=== PATIENT | male | born 1955 | race African-American/Black ===

== ENCOUNTER 2020-08-28 01:37 | Inpatient (IN) | payer MEDICARE, MEDICAID ==
[~2020-08-28] VITALS: Ht 175.3 cm; Wt 73.0 kg
[2020-08-28] MEDS ORDERED: METHYLPREDNISOLONE SOD SUCC 125 MG/2 ML VIAL IV STA (01:42)
[2020-08-28] MEDS ORDERED: ALBUTEROL (0.083%) 2.5MG/3ML NEB HHN STA (01:42)
[2020-08-28] MEDS ORDERED: IPRATROPIUM BROMIDE (0.02%) 0.5MG/2.5ML NEB HHN STA (01:42)
[2020-08-28] MEDS ORDERED: MAGNESIUM 2 G PREMIX 50 ML IV ONE (01:45)
[2020-08-28 02:35] LABS: BASOPHILS % 0.4 % (0.0-2.0); HEMATOCRIT. 38.7 % (42.0-52.0); HEMOGLOBIN. 12.8 g/dL (14.0-18.0); LYMPHOCYTES % 10.6 % (20.0-50.0); MEAN CORPUSCULAR HEMOGLOBIN 27.5 pg (28.0-32.0); MEAN CORPUSCULAR VOLUME 83.1 fL (80.0-94.0); MEAN PLATELET VOLUME 9.9 fl (7.4-10.4); MONOCYTES % 12.3 % (2.0-8.0); NEUTROPHILS % 76.7 % (40.0-76.0); PLATELET 424 x1000/uL (130-400); RED BLOOD CELL COUNT 4.66 mill/uL (4.7-6.1)
[2020-08-28 02:36] LABS: CHLORIDE 100 mEq/L (98-107)
[2020-08-28] MEDS ORDERED: PIPERACILLIN/TAZOBACTAM 3.375GM/50ML PREMIX IV ONE (03:00)
[2020-08-28] MEDS ORDERED: PIPERACILLIN/TAZ 3.375G PREMIX 50 ML IV NR (03:00)
[2020-08-28] MEDS ORDERED: VANCOMYCIN 1 G PREMIX 200 ML IV SCH (03:00)
[2020-08-28] MEDS ORDERED: ASPIRIN 81MG TABLET PO NR (03:00)
[2020-08-28] MEDS ORDERED: CALCIUM GLUCONATE 100MG/ML 10ML VIAL IV NR (03:15)
[2020-08-28 03:44] LABS: BG BASE EXCESS 5.1 mmol/L (-2.0-2.0); BG CARBOXYHEMOGLOBIN 1.6 % (0.5-1.5); BG DEOXYHEMOGLOBIN 0.5 % (0.0-5.0); BG FRACTION INSPIRED OXYGEN 100; BG METHEMOGLOBIN 0.7 % (0.0-1.5); BG OXYGEN SATURATION 99.5 % (92.0-98.5); BG OXYHEMOGLOBIN 97.2 % (94.0-97.0); BG PCO2 73.5 mmHg (35.0-45.0); BG PH 7.283 (7.350-7.450); BG PO2 507.9 mmHg (75.0-100.0); BG SAMPLE SITE UVC; BG TOTAL HEMOGLOBIN 12.8 g/dL (12.0-18.0); BG VENT MODE MASK - BIPAP
[2020-08-28] MEDS ORDERED: ALBUTEROL (0.083%) 2.5MG/3ML NEB HHN ONE (05:00)
[2020-08-28 08:50] LABS: CLARITY URINE CLEAR (CLEAR); COLOR URINE YELLOW (YELLOW); KETONES URINE NEGATIVE (NEGATIVE); LEUKOCYTE ESTERASE URINE TRACE (NEGATIVE); NITRITE URINE NEGATIVE (NEGATIVE); OCCULT BLOOD URINE 3+ (NEGATIVE); PH URINE 5.5 (4.5-8.0); PROTEIN URINE 2+ (NEGATIVE); SPECIFIC GRAVITY URINE 1.029 (1.005-1.030)
[2020-08-28 08:54] VITALS: BP 158/85
[2020-08-28] MEDS ORDERED: ONDANSETRON HCL 4MG/2ML INJ IV PRN (09:15)
[2020-08-28] MEDS ORDERED: CLOP75TA4 MT (09:37)
[2020-08-28] MEDS ORDERED: BENA5TAB6 PO (09:37)
[2020-08-28] MEDS ORDERED: HYDR12.54 MT (09:37)
[2020-08-28] MEDS ORDERED: ALPR0.25 PO (09:37)
[2020-08-28] MEDS: ENOXAPARIN 40MG/0.4ML SYR SUBCUT SCH (10:30)
[2020-08-28] MEDS: METHYLPREDNISOLONE SOD SUCC 40 MG/ML VIAL IV SCH ×3 (10:30→21:50)
[2020-08-28] MEDS: FAMOTIDINE 20MG TABLET PO SCH ×2 (10:30→21:49)
[2020-08-28 10:38] VITALS: BP 138/75
[2020-08-28 12:00] VITALS: BP 132/83
[2020-08-28] MEDS: IPRATROPIUM/ALBUTEROL 0.5-3(2.5)MG/3ML NEB HHN SCH ×3 (12:05→20:58)
[2020-08-28] MEDS: AMLODIPINE 10MG TABLET PO SCH (15:37)
[2020-08-28 16:00] VITALS: BP 133/77
[2020-08-28] MEDS: ALPRAZOLAM 0.25 MG TABLET PO PRN (18:07)
[2020-08-28 19:45] VITALS: BP 135/64
[2020-08-28] MEDS: TRAZODONE HCL 50MG TABLET PO SCH (21:49)
[2020-08-28 22:26] VITALS: BP 121/64
[2020-08-28] MEDS ORDERED: TEMAZEPAM 15MG CAPSULE PO PRN (23:15)
[2020-08-29] VITALS (12 sets, daily range): BP systolic 95–133; BP diastolic 58–78
[2020-08-29] MEDS: IPRATROPIUM/ALBUTEROL 0.5-3(2.5)MG/3ML NEB HHN SCH ×7 (00:59→23:47)
[2020-08-29] MEDS: METHYLPREDNISOLONE SOD SUCC 40 MG/ML VIAL IV SCH ×3 (06:37→22:05)
[2020-08-29] MEDS: FAMOTIDINE 20MG TABLET PO SCH ×2 (08:07→22:04)
[2020-08-29] MEDS: ENOXAPARIN 40MG/0.4ML SYR SUBCUT SCH (08:07)
[2020-08-29] MEDS: AMLODIPINE 10MG TABLET PO SCH (08:08)
[2020-08-29] MEDS: ALPRAZOLAM 0.25 MG TABLET PO PRN ×2 (09:20→22:04)
[2020-08-29] MEDS: TRAZODONE HCL 50MG TABLET PO SCH (22:04)
[2020-08-29] MEDS: THEOPHYLLINE ANHYDROUS 80 MG/15 ML 120ML PO SCH (22:05)
[2020-08-30] VITALS (12 sets, daily range): BP systolic 114–146; BP diastolic 59–88
[2020-08-30] MEDS ORDERED: ACETAMINOPHEN 650MG/20.3ML UDC PO PRN (00:30)
[2020-08-30] MEDS ORDERED: HYDROCODONE/ACETAMINOPHEN 10/325MG TABLET PO PRN (00:30)
[2020-08-30] MEDS ORDERED: ACETAMINOPHEN 325MG TABLET PO PRN ×2 (00:45→09:30)
[2020-08-30] MEDS: TEMAZEPAM 15MG CAPSULE PO PRN ×2 (02:52→21:22)
[2020-08-30] MEDS: IPRATROPIUM/ALBUTEROL 0.5-3(2.5)MG/3ML NEB HHN SCH ×5 (04:36→21:25)
[2020-08-30] MEDS: METHYLPREDNISOLONE SOD SUCC 40 MG/ML VIAL IV SCH ×3 (07:11→21:22)
[2020-08-30] MEDS: THEOPHYLLINE ANHYDROUS 80 MG/15 ML 120ML PO SCH ×3 (07:12→21:56)
[2020-08-30 08:47] LABS: BG BASE EXCESS 8.5 mmol/L (-2.0-2.0); BG CARBOXYHEMOGLOBIN 0.3 % (0.5-1.5); BG DEOXYHEMOGLOBIN 2.2 % (0.0-5.0); BG FRACTION INSPIRED OXYGEN 28; BG HCO3 ACT 34.5 mmol/L (22.0-26.0); BG METHEMOGLOBIN 0.6 % (0.0-1.5); BG OXYGEN SATURATION 97.8 % (92.0-98.5); BG OXYHEMOGLOBIN 96.9 % (94.0-97.0); BG PCO2 55.8 mmHg (35.0-45.0); BG PH 7.409 (7.350-7.450); BG PO2 126.1 mmHg (75.0-100.0); BG SAMPLE SITE RIGHT RADIAL; BG TOTAL HEMOGLOBIN 10.1 g/dL (12.0-18.0); BG VENT MODE NASAL CANNULA
[2020-08-30] MEDS: AMLODIPINE 10MG TABLET PO SCH (09:06)
[2020-08-30] MEDS: FAMOTIDINE 20MG TABLET PO SCH ×2 (09:06→21:21)
[2020-08-30] MEDS: ENOXAPARIN 40MG/0.4ML SYR SUBCUT SCH (09:06)
[2020-08-30] MEDS: ALPRAZOLAM 0.25 MG TABLET PO PRN ×2 (09:09→21:31)
[2020-08-30] MEDS ORDERED: THEOL PO (11:59)
[2020-08-30] MEDS ORDERED: ALPR0.25 PO (11:59)
[2020-08-30] MEDS ORDERED: ALBU18HF2 IH (11:59)
[2020-08-30] MEDS ORDERED: TRAZ-251 PO (11:59)
[2020-08-30] MEDS ORDERED: IPRA3AMP9 NEB (11:59)
[2020-08-30] MEDS ORDERED: FLUT1DIS3 INH (11:59)
[2020-08-30] MEDS ORDERED: P20 MT (11:59)
[2020-08-30] MEDS: TRAZODONE HCL 50MG TABLET PO SCH (21:21)
[2020-08-31] VITALS: BP 137/79
[2020-08-31] MEDS: IPRATROPIUM/ALBUTEROL 0.5-3(2.5)MG/3ML NEB HHN SCH ×3 (00:23→08:56)
[2020-08-31 02:00] VITALS: BP 156/98
[2020-08-31 05:41] VITALS: BP 129/80
[2020-08-31] MEDS: METHYLPREDNISOLONE SOD SUCC 40 MG/ML VIAL IV SCH (06:38)
[2020-08-31] MEDS: THEOPHYLLINE ANHYDROUS 80 MG/15 ML 120ML PO SCH (06:38)
[2020-08-31] MEDS: ALPRAZOLAM 0.25 MG TABLET PO PRN (06:44)
[2020-08-31 07:55] VITALS: BP 139/66
[2020-08-31] MEDS: ENOXAPARIN 40MG/0.4ML SYR SUBCUT SCH (08:43)
[2020-08-31] MEDS: FAMOTIDINE 20MG TABLET PO SCH (08:44)
[2020-08-31] MEDS: AMLODIPINE 10MG TABLET PO SCH (08:44)
[2020-08-31 09:40] VITALS: BP 139/66
== END 2020-08-31 10:30 | disposition home or self-care (01) | DRG 917 ==
LOC: ER 01:37 → 3WST 03:24 → EDBEDREQ 03:27 → EDBEDREQTM 03:27 → ENRESERV 07:29
PROVIDERS: ADMIT Internal Medicine; ATTEND Internal Medicine
PROC: 5A09357 Assistance with Respiratory Ventilation, Less than 24 Consecutive Hours, Continuous Positive Airway Pressure (ICD-10-PCS; principal; 2020-08-28)
DX: T40.5X1A Poisoning by cocaine, accidental (unintentional), initial encounter (principal); J96.02 Acute respiratory failure with hypercapnia; J68.0 Bronchitis and pneumonitis due to chemicals, gases, fumes and vapors; J44.1 Chronic obstructive pulmonary disease with (acute) exacerbation; F14.90 Cocaine use, unspecified, uncomplicated; D72.829 Elevated white blood cell count, unspecified; D64.9 Anemia, unspecified; I50.9 Heart failure, unspecified; T38.0X5A Adverse effect of glucocorticoids and synthetic analogues, initial encounter; I11.0 Hypertensive heart disease with heart failure; F19.11 Other psychoactive substance abuse, in remission; Z99.81 Dependence on supplemental oxygen; Z72.0 Tobacco use; Y92.89 Other specified places as the place of occurrence of the external cause; Z79.899 Other long term (current) drug therapy
CPT/HCPCS: 36415; 36600; 71045; 80053; 81003; 82375; 82805; 83605; 83880; 84145; 84484; 85025; 93005; 94640; 94644; 94660; 99285; J0610; J1650; J2543; J2920; J2930; J3475

== ENCOUNTER 2020-10-25 23:37 | Inpatient (IN) | payer MEDICARE, MEDICAID ==
[~2020-10-25] VITALS: Ht 177.8 cm; Wt 90.7 kg
[~2020-10-25 23:37] MED LIST: ALBU18HF2 IH; ALPR0.25 PO; BENA5TAB6 PO; CLOP75TA4 MT; FLUT1DIS3 INH; HYDR12.54 MT; IPRA3AMP9 NEB; P20 MT; THEOL PO; TRAZ-251 PO
[2020-10-25] MEDS ORDERED: METHYLPREDNISOLONE SOD SUCC 125 MG/2 ML VIAL IV STA (23:46)
[2020-10-25] MEDS ORDERED: ONDANSETRON HCL 4MG/2ML INJ IV STA (23:46)
[2020-10-25] MEDS ORDERED: IPRATROPIUM BROMIDE (0.02%) 0.5MG/2.5ML NEB HHN STA (23:46)
[2020-10-26] MEDS ORDERED: MAGNESIUM 2 G PREMIX 50 ML IV ONE
[2020-10-26] MEDS: ALBUTEROL (0.083%) 2.5MG/3ML NEB HHN SCH ×2 (00:25→13:35)
[2020-10-26 01:02] LABS: BASOPHILS % 0.5 % (0.0-2.0); EOSINOPHILS % 0.3 % (0.0-5.0); HEMATOCRIT. 36.6 % (42.0-52.0); HEMOGLOBIN. 11.7 g/dL (14.0-18.0); LYMPHOCYTES % 22.1 % (20.0-50.0); MEAN CORPUSCULAR HEMOGLOBIN 26.2 pg (28.0-32.0); MEAN CORPUSCULAR VOLUME 81.7 fL (80.0-94.0); MEAN PLATELET VOLUME 9.3 fl (7.4-10.4); MONOCYTES % 8.9 % (2.0-8.0); NEUTROPHILS % 68.2 % (40.0-76.0); PLATELET 334 x1000/uL (130-400); RED BLOOD CELL COUNT 4.48 mill/uL (4.7-6.1); RED CELL DISTRIBUTION WIDTH 19.7 % (11.6-14.6)
[2020-10-26 01:08] LABS: CHLORIDE 108 mEq/L (98-107)
[2020-10-26 03:33] LABS: BG BASE EXCESS -1.2 mmol/L (-2.0-2.0); BG CARBOXYHEMOGLOBIN 0.8 % (0.5-1.5); BG DEOXYHEMOGLOBIN 3.6 % (0.0-5.0); BG FRACTION INSPIRED OXYGEN 40; BG HCO3 ACT 25.5 mmol/L (22.0-26.0); BG METHEMOGLOBIN 0.9 % (0.0-1.5); BG OXYGEN SATURATION 96.3 % (92.0-98.5); BG OXYHEMOGLOBIN 94.7 % (94.0-97.0); BG PCO2 52.2 mmHg (35.0-45.0); BG PH 7.307 (7.350-7.450); BG PO2 97.5 mmHg (75.0-100.0); BG TOTAL HEMOGLOBIN 10.7 g/dL (12.0-18.0); BG VENT MODE NASAL CANNULA
[2020-10-26] MEDS ORDERED: IPRATROPIUM/ALBUTEROL 0.5-3(2.5)MG/3ML NEB HHN PRN (05:45)
[2020-10-26] MEDS ORDERED: ACETAMINOPHEN 325MG TABLET PO PRN (11:30)
[2020-10-26] MEDS ORDERED: ONDANSETRON HCL 4MG/2ML INJ IV PRN (11:30)
[2020-10-26] MEDS ORDERED: KETOROLAC 30MG/ML VIAL IV PRN (11:30)
[2020-10-26] MEDS: ENOXAPARIN 40MG/0.4ML SYR SUBCUT SCH (12:00)
[2020-10-26] MEDS ORDERED: LEVOFLOXACIN 500MG PREMIX 100 ML IV SCH (12:00)
[2020-10-26] MEDS: METHYLPREDNISOLONE SOD SUCC 40 MG/ML VIAL IV SCH ×2 (12:00→21:46)
[2020-10-26] MEDS: ALBUTEROL 6.7GM HFA INHALER ORI SCH ×2 (16:54→21:02)
[2020-10-26] MEDS: THEOPHYLLINE ANHYDROUS 80 MG/15 ML 120ML PO SCH (22:00)
[2020-10-27] MEDS: METHYLPREDNISOLONE SOD SUCC 40 MG/ML VIAL IV SCH ×3 (06:37→20:09)
[2020-10-27] MEDS: THEOPHYLLINE ANHYDROUS 80 MG/15 ML 120ML PO SCH ×3 (06:46→22:13)
[2020-10-27] MEDS: ALBUTEROL 6.7GM HFA INHALER ORI SCH ×5 (08:31→21:04)
[2020-10-27 11:21] VITALS: BP 180/77
[2020-10-27 12:00] VITALS: BP 170/76
[2020-10-27] MEDS ORDERED: CLONIDINE 0.1MG TABLET PO PRN (12:30)
[2020-10-27] MEDS: LEVOFLOXACIN 500MG PREMIX 100 ML IV SCH (12:52)
[2020-10-27] MEDS: LOSARTAN POTASSIUM 100 MG TABLET PO SCH (12:53)
[2020-10-27] MEDS: ENOXAPARIN 40MG/0.4ML SYR SUBCUT SCH (12:53)
[2020-10-27 16:00] VITALS: BP 156/72
[2020-10-27 20:46] VITALS: BP 154/77
[2020-10-27] MEDS: LORAZEPAM 1MG TABLET PO PRN (22:12)
[2020-10-28 00:40] VITALS: BP 156/73
[2020-10-28] MEDS: ALBUTEROL 6.7GM HFA INHALER ORI SCH ×2 (02:25→21:25)
[2020-10-28 04:00] VITALS: BP 145/91
[2020-10-28] MEDS: METHYLPREDNISOLONE SOD SUCC 40 MG/ML VIAL IV SCH ×3 (04:21→20:16)
[2020-10-28] MEDS: THEOPHYLLINE ANHYDROUS 80 MG/15 ML 120ML PO SCH ×3 (05:47→21:40)
[2020-10-28 08:00] VITALS: BP 161/84
[2020-10-28] MEDS: LOSARTAN POTASSIUM 100 MG TABLET PO SCH (08:27)
[2020-10-28] MEDS: LORAZEPAM 1MG TABLET PO PRN ×2 (10:32→21:40)
[2020-10-28 11:57] VITALS: BP 154/76
[2020-10-28] MEDS: ENOXAPARIN 40MG/0.4ML SYR SUBCUT SCH (13:00)
[2020-10-28] MEDS: LEVOFLOXACIN 500MG PREMIX 100 ML IV SCH (13:00)
[2020-10-28 15:53] VITALS: BP 140/77
[2020-10-28 20:00] VITALS: BP_SYST 112; BP_SYST 124; BP_DIAS 71; BP_DIAS 85
[2020-10-28] MEDS: GUAIFENESIN 200MG/10ML SUGAR FREE UDC PO PRN (21:40)
[2020-10-29] VITALS: BP 153/75
[2020-10-29] MEDS: ALBUTEROL 6.7GM HFA INHALER ORI SCH ×4 (01:48→13:45)
[2020-10-29 04:00] VITALS: BP 153/87
[2020-10-29] MEDS: METHYLPREDNISOLONE SOD SUCC 40 MG/ML VIAL IV SCH ×2 (04:14→12:48)
[2020-10-29] MEDS: THEOPHYLLINE ANHYDROUS 80 MG/15 ML 120ML PO SCH ×2 (06:00→12:48)
[2020-10-29 08:00] VITALS: BP 125/87
[2020-10-29] MEDS: LOSARTAN POTASSIUM 100 MG TABLET PO SCH (08:49)
[2020-10-29 11:57] VITALS: BP 142/87
[2020-10-29] MEDS: LEVOFLOXACIN 500MG PREMIX 100 ML IV SCH (12:48)
[2020-10-29] MEDS: ENOXAPARIN 40MG/0.4ML SYR SUBCUT SCH (12:48)
[2020-10-29] MEDS: GUAIFENESIN 200MG/10ML SUGAR FREE UDC PO PRN (15:16)
[2020-10-29 16:00] VITALS: BP 102/83
[2020-10-29] MEDS ORDERED: P20 MT (16:57)
[2020-10-29] MEDS ORDERED: LOSA100T3 PO (16:57)
[2020-10-29] MEDS ORDERED: THEOL PO (16:57)
[2020-10-29] MEDS ORDERED: ALBU18HF2 IH (16:57)
[2020-10-29] MEDS ORDERED: IPRA3AMP9 NEB (16:57)
[2020-10-29] MEDS ORDERED: FLUT1DIS3 INH (16:57)
[2020-10-29 17:15] VITALS: BP 102/83
== END 2020-10-29 18:00 | disposition home or self-care (01) | DRG 205 ==
LOC: ER 23:37 → MICUSO 10-26 05:13 → EDBEDREQ 10-26 05:26 → EDBEDREQTM 10-26 05:26 → EDBEDREQDT 10-26 05:26 → 7EST 10-27 10:14
PROVIDERS: ADMIT Internal Medicine; ATTEND Internal Medicine
DX: J68.0 Bronchitis and pneumonitis due to chemicals, gases, fumes and vapors (principal); J96.00 Acute respiratory failure, unspecified whether with hypoxia or hypercapnia; Z20.828 Contact with and (suspected) exposure to other viral communicable diseases; E87.8 Other disorders of electrolyte and fluid balance, not elsewhere classified; F17.210 Nicotine dependence, cigarettes, uncomplicated; I50.9 Heart failure, unspecified; F14.10 Cocaine abuse, uncomplicated; I11.0 Hypertensive heart disease with heart failure; D64.9 Anemia, unspecified; Z99.81 Dependence on supplemental oxygen; Z79.52 Long term (current) use of systemic steroids; Z82.49 Family history of ischemic heart disease and other diseases of the circulatory system; Z79.899 Other long term (current) drug therapy
CPT/HCPCS: 36415; 36600; 71045; 80053; 82375; 82805; 83605; 83880; 84484; 85025; 87635; 93005; 94640; 96365; 96366; 96367; 96372; 96375; 96376; 99285; J1650; J1956; J2405; J2920; J2930; J3475; A4315

== ENCOUNTER 2021-01-20 11:20 | Inpatient (IN) | payer MEDICARE, MEDICAID ==
[~2021-01-20] VITALS: Ht 182.9 cm; Wt 80.7 kg
[~2021-01-20 11:20] MED LIST changes: +CLOP-31 PO; -CLOP75TA4 MT; -HYDR12.54 MT; +HYDR12.54 PO; +LOSA100T3 PO
[2021-01-20] MEDS ORDERED: DEXAMETHASONE 10 MG/ML VIAL IV ONE (12:15)
[2021-01-20] MEDS ORDERED: IPRATROPIUM/ALBUTEROL 0.5-3(2.5)MG/3ML NEB HHN ONE ×2 (12:15→17:00)
[2021-01-20 13:14] LABS: BASOPHILS % 1.1 % (0.0-2.0); EOSINOPHILS % 2.3 % (0.0-5.0); HEMATOCRIT. 33.8 % (42.0-52.0); HEMOGLOBIN. 11.3 g/dL (14.0-18.0); LYMPHOCYTES % 12.6 % (20.0-50.0); MEAN CORPUSCULAR HEMOGLOBIN 27.1 pg (28.0-32.0); MEAN PLATELET VOLUME 9.3 fl (7.4-10.4); MONOCYTES % 8.9 % (2.0-8.0); NEUTROPHILS % 75.1 % (40.0-76.0); PLATELET 230 x1000/uL (130-400); RED BLOOD CELL COUNT 4.17 mill/uL (4.7-6.1); RED CELL DISTRIBUTION WIDTH 18.6 % (11.6-14.6)
[2021-01-20 13:22] LABS: CHLORIDE 109 mEq/L (98-107)
[2021-01-20 13:23] LABS: BG BASE EXCESS 2.1 mmol/L (-2.0-2.0); BG CARBOXYHEMOGLOBIN 2.6 % (0.5-1.5); BG DEOXYHEMOGLOBIN 1.7 % (0.0-5.0); BG FRACTION INSPIRED OXYGEN 32; BG HCO3 ACT 29.2 mmol/L (22.0-26.0); BG METHEMOGLOBIN 0.7 % (0.0-1.5); BG OXYGEN SATURATION 98.2 % (92.0-98.5); BG PCO2 57.4 mmHg (35.0-45.0); BG PH 7.325 (7.350-7.450); BG SAMPLE SITE RIGHT RADIAL; BG TOTAL HEMOGLOBIN 12.1 g/dL (12.0-18.0); BG VENT MODE NASAL CANNULA
[2021-01-20 14:00] LABS: CLARITY URINE CLEAR (CLEAR); COLOR URINE YELLOW (YELLOW); KETONES URINE NEGATIVE (NEGATIVE); LEUKOCYTE ESTERASE URINE NEGATIVE (NEGATIVE); NITRITE URINE NEGATIVE (NEGATIVE); OCCULT BLOOD URINE NEGATIVE (NEGATIVE); PH URINE 5.5 (4.5-8.0); PROTEIN URINE TRACE (NEGATIVE); SPECIFIC GRAVITY URINE 1.016 (1.005-1.030)
[2021-01-20] MEDS ORDERED: DOXYCYCLINE HYCLATE 100MG CAPSULE PO ONE (17:15)
[2021-01-20] MEDS ORDERED: ONDANSETRON HCL 4MG/2ML INJ IV PRN (17:45)
[2021-01-20] MEDS ORDERED: ACETAMINOPHEN 325MG TABLET PO PRN (17:45)
[2021-01-20] MEDS ORDERED: HYDRALAZINE 20MG/ML VIAL IV PRN (17:45)
[2021-01-20] MEDS ORDERED: DOCUSATE SODIUM 100MG CAPSULE PO PRN (17:45)
[2021-01-20] MEDS ORDERED: MAGNESIUM/ALUMINUM HYDROXIDE/SIMETHICONE 30ML UDC PO PRN (17:45)
[2021-01-20] MEDS ORDERED: IPRATROPIUM/ALBUTEROL 0.5-3(2.5)MG/3ML NEB HHN PRN (17:45)
[2021-01-20] MEDS ORDERED: DIPHENHYDRAMINE 50MG/ML VIAL IV PRN (17:45)
[2021-01-20] MEDS ORDERED: IPRATROPIUM/ALBUTEROL 0.5-3(2.5)MG/3ML NEB NEB SCH (18:00)
[2021-01-20] MEDS: METHYLPREDNISOLONE SOD SUCC 40 MG/ML VIAL IV SCH (18:40)
[2021-01-20] MEDS: ENOXAPARIN 40MG/0.4ML SYR SUBCUT SCH (18:42)
[2021-01-20] MEDS: SODIUM CHLORIDE 0.9% INJ 3ML FLUSH IVF SCH (18:45)
[2021-01-20] MEDS: GUAIFENESIN 200MG/10ML SUGAR FREE UDC PO PRN (21:45)
[2021-01-20] MEDS: LORAZEPAM 2MG/ML CPJ IV PRN (22:17)
[2021-01-20 23:32] LABS: CREATINE KINASE 180 IU/L (39-308); CREATINE KINASE MB FRACTION 4.4 ng/mL (0.5-3.6)
[2021-01-21] VITALS: BP 152/83
[2021-01-21] MEDS ORDERED: ALBUTEROL 6.7GM HFA INHALER ORI PRN (00:30)
[2021-01-21] MEDS: METHYLPREDNISOLONE SOD SUCC 40 MG/ML VIAL IV SCH ×3 (02:19→18:18)
[2021-01-21 04:00] VITALS: BP 155/86
[2021-01-21] MEDS ORDERED: ALBUTEROL 6.7GM HFA INHALER ORI SCH (06:00)
[2021-01-21] MEDS: SODIUM CHLORIDE 0.9% INJ 3ML FLUSH IVF SCH ×3 (06:18→21:42)
[2021-01-21 06:22] LABS: *AMPHETAMINES SCREEN URINE NEGATIVE (NEGATIVE); *BARBITURATES SCREEN URINE NEGATIVE (NEGATIVE); *BENZODIAZEPINES SCREEN URINE NEGATIVE (NEGATIVE); *COCAINE SCREEN URINE PRESUMTIVE POSITIVE (NEGATIVE); METHADONE URINE SCREEN NEGATIVE (NEGATIVE); OPIATES URINE SCREEN NEGATIVE (NEGATIVE)
[2021-01-21 06:23] LABS: CANNABINOID URINE SCREEN NEGATIVE (NEGATIVE); PHENCYCLIDINE URINE SCREEN NEGATIVE (NEGATIVE)
[2021-01-21 07:58] LABS: BASOPHILS % 0.4 % (0.0-2.0); EOSINOPHILS % 0.1 % (0.0-5.0); HEMATOCRIT. 33.3 % (42.0-52.0); HEMOGLOBIN. 11.1 g/dL (14.0-18.0); LYMPHOCYTES % 11.4 % (20.0-50.0); MEAN CORPUSCULAR HEMOGLOBIN 26.7 pg (28.0-32.0); MEAN CORPUSCULAR VOLUME 80.1 fL (80.0-94.0); MEAN PLATELET VOLUME 9.7 fl (7.4-10.4); MONOCYTES % 1.5 % (2.0-8.0); NEUTROPHILS % 86.6 % (40.0-76.0); PLATELET 229 x1000/uL (130-400); RED BLOOD CELL COUNT 4.16 mill/uL (4.7-6.1); RED CELL DISTRIBUTION WIDTH 18.2 % (11.6-14.6)
[2021-01-21 08:00] VITALS: BP 150/90
[2021-01-21 08:17] LABS: CHLORIDE 105 mEq/L (98-107)
[2021-01-21 08:28] LABS: CREATINE KINASE 184 IU/L (39-308)
[2021-01-21 08:30] LABS: CREATINE KINASE MB FRACTION 5.1 ng/mL (0.5-3.6)
[2021-01-21 12:00] VITALS: BP 153/82
[2021-01-21] MEDS: ALBUTEROL (0.083%) 2.5MG/3ML NEB HHN SCH ×2 (12:13→20:55)
[2021-01-21] MEDS: GUAIFENESIN 200MG/10ML SUGAR FREE UDC PO PRN ×3 (12:29→20:33)
[2021-01-21] MEDS: LORAZEPAM 2MG/ML CPJ IV PRN ×3 (12:40→20:33)
[2021-01-21] MEDS: ALBUTEROL (0.083%) 2.5MG/3ML NEB HHN PRN (17:38)
[2021-01-21] MEDS: ENOXAPARIN 40MG/0.4ML SYR SUBCUT SCH (18:17)
[2021-01-21 20:00] VITALS: BP 161/83
[2021-01-21] MEDS: CLONIDINE 0.1MG TABLET PO PRN (21:43)
[2021-01-22] VITALS: BP 121/70
[2021-01-22] MEDS: ALBUTEROL (0.083%) 2.5MG/3ML NEB HHN SCH ×4 (01:49→21:17)
[2021-01-22] MEDS: METHYLPREDNISOLONE SOD SUCC 40 MG/ML VIAL IV SCH ×3 (02:43→18:38)
[2021-01-22 04:00] VITALS: BP 114/61
[2021-01-22] MEDS: ALBUTEROL (0.083%) 2.5MG/3ML NEB HHN PRN ×2 (04:57→17:28)
[2021-01-22 06:16] LABS: HEMOGLOBIN. 10.2 g/dL (14.0-18.0); MEAN CORPUSCULAR HEMOGLOBIN 27.6 pg (28.0-32.0); MEAN CORPUSCULAR VOLUME 81.2 fL (80.0-94.0); MEAN PLATELET VOLUME 10.2 fl (7.4-10.4); PLATELET 218 x1000/uL (130-400); RED CELL DISTRIBUTION WIDTH 18.8 % (11.6-14.6)
[2021-01-22 06:19] LABS: CHLORIDE 106 mEq/L (98-107)
[2021-01-22] MEDS: LORAZEPAM 2MG/ML CPJ IV PRN ×2 (06:25→20:23)
[2021-01-22] MEDS: GUAIFENESIN 200MG/10ML SUGAR FREE UDC PO PRN ×2 (06:25→20:27)
[2021-01-22] MEDS: SODIUM CHLORIDE 0.9% INJ 3ML FLUSH IVF SCH ×3 (06:29→21:08)
[2021-01-22 08:00] VITALS: BP 129/64
[2021-01-22 12:00] VITALS: BP 147/82
[2021-01-22 16:48] LABS: PLATELET ESTIMATE NORMAL
[2021-01-22] MEDS: ENOXAPARIN 40MG/0.4ML SYR SUBCUT SCH (18:37)
[2021-01-22 20:00] VITALS: BP 151/71
[2021-01-23] VITALS: BP 152/84
[2021-01-23] MEDS: ALBUTEROL (0.083%) 2.5MG/3ML NEB HHN SCH ×4 (03:07→22:15)
[2021-01-23] MEDS: LORAZEPAM 2MG/ML CPJ IV PRN ×3 (03:29→18:35)
[2021-01-23] MEDS: METHYLPREDNISOLONE SOD SUCC 40 MG/ML VIAL IV SCH ×3 (03:29→18:25)
[2021-01-23] MEDS: GUAIFENESIN 200MG/10ML SUGAR FREE UDC PO PRN ×3 (03:29→18:29)
[2021-01-23 04:00] VITALS: BP 138/82
[2021-01-23] MEDS: SODIUM CHLORIDE 0.9% INJ 3ML FLUSH IVF SCH ×2 (06:23→14:00)
[2021-01-23 08:00] VITALS: BP 150/50
[2021-01-23] MEDS: ALBUTEROL (0.083%) 2.5MG/3ML NEB HHN PRN ×2 (11:44→17:51)
[2021-01-23 12:00] VITALS: BP 143/77
[2021-01-23 16:00] VITALS: BP 152/73
[2021-01-23] MEDS: ENOXAPARIN 40MG/0.4ML SYR SUBCUT SCH (18:26)
[2021-01-23 20:00] VITALS: BP 124/70
[2021-01-24] VITALS: BP 100/70
[2021-01-24] MEDS: METHYLPREDNISOLONE SOD SUCC 40 MG/ML VIAL IV SCH ×2 (01:44→09:26)
[2021-01-24] MEDS: SODIUM CHLORIDE 0.9% INJ 3ML FLUSH IVF SCH (01:45)
[2021-01-24] MEDS: GUAIFENESIN 200MG/10ML SUGAR FREE UDC PO PRN ×2 (01:49→09:26)
[2021-01-24] MEDS: LORAZEPAM 2MG/ML CPJ IV PRN ×2 (01:50→09:27)
[2021-01-24] MEDS: ALBUTEROL (0.083%) 2.5MG/3ML NEB HHN SCH ×3 (03:57→12:49)
[2021-01-24 04:00] VITALS: BP 146/74
[2021-01-24 08:00] VITALS: BP 150/75
[2021-01-24] MEDS: CLONIDINE 0.1MG TABLET PO PRN (11:26)
[2021-01-24 12:00] VITALS: BP 173/89
[2021-01-24 13:26] VITALS: BP 173/89
== END 2021-01-24 16:43 | disposition home or self-care (01) | DRG 189 ==
LOC: ER 11:20 → 7WST 16:48 → ENRESERV 22:22 → 6WST 01-21 11:42
PROVIDERS: ADMIT Internal Medicine; ATTEND Internal Medicine
DX: J96.00 Acute respiratory failure, unspecified whether with hypoxia or hypercapnia (principal); J44.1 Chronic obstructive pulmonary disease with (acute) exacerbation; F14.10 Cocaine abuse, uncomplicated; I10 Essential (primary) hypertension; J44.9 Chronic obstructive pulmonary disease, unspecified; Z20.822 Contact with and (suspected) exposure to COVID-19; Z79.02 Long term (current) use of antithrombotics/antiplatelets; Z79.51 Long term (current) use of inhaled steroids; Z79.899 Other long term (current) drug therapy; Z82.49 Family history of ischemic heart disease and other diseases of the circulatory system
CPT/HCPCS: 36415; 36600; 71045; 80048; 80053; 80305; 81003; 82375; 82550; 82553; 82805; 83880; 84484; 85025; 93005; 94640; 99285; C1893; J1100; J1650; J2060; J2920; U0003

== ENCOUNTER 2021-05-16 15:31 | Inpatient (IN) | payer MEDICARE, OTHER ==
[~2021-05-16] VITALS: Ht 175.3 cm; Wt 69.4 kg
[2021-05-16] MEDS ORDERED: IPRATROPIUM BROMIDE (0.02%) 0.5MG/2.5ML NEB HHN STA (16:09)
[2021-05-16] MEDS ORDERED: ALBUTEROL (0.083%) 2.5MG/3ML NEB HHN STA (16:09)
[2021-05-16] MEDS ORDERED: METHYLPREDNISOLONE SOD SUCC 125 MG/2 ML VIAL IV STA (16:09)
[2021-05-16] MEDS ORDERED: MAGNESIUM 2 G PREMIX 50 ML IV ONE (16:15)
[2021-05-16] MEDS ORDERED: DOXYCYCLINE 100MG in DEXTROSE 5% WATER 100ML IV NR (16:45)
[2021-05-16] MEDS ORDERED: DOXYCYCLINE HYCLATE 100 MG/VIAL IV ONE (16:45)
[2021-05-16 17:09] LABS: BASOPHILS % 0.8 % (0.0-2.0); EOSINOPHILS % 2.4 % (0.0-5.0); HEMATOCRIT. 34.8 % (42.0-52.0); HEMOGLOBIN. 12.1 g/dL (14.0-18.0); LYMPHOCYTES % 17.8 % (20.0-50.0); MEAN CORPUSCULAR HEMOGLOBIN 27.5 pg (28.0-32.0); MEAN PLATELET VOLUME 9.3 fl (7.4-10.4); MONOCYTES % 7.9 % (2.0-8.0); NEUTROPHILS % 71.1 % (40.0-76.0); PLATELET 249 x1000/uL (130-400); RED BLOOD CELL COUNT 4.41 mill/uL (4.7-6.1); RED CELL DISTRIBUTION WIDTH 20.5 % (11.6-14.6)
[2021-05-16 17:16] LABS: CHLORIDE 110 mEq/L (98-107)
[2021-05-16] MEDS ORDERED: ACETAMINOPHEN 325MG TABLET PO PRN ×2 (19:30)
[2021-05-16] MEDS ORDERED: CLONIDINE 0.1MG TABLET PO PRN (19:30)
[2021-05-16] MEDS ORDERED: DOCUSATE SODIUM 100MG CAPSULE PO PRN (19:30)
[2021-05-16] MEDS ORDERED: HYDROCODONE/ACETAMINOPHEN 5/325MG TABLET PO PRN (19:30)
[2021-05-16] MEDS ORDERED: ONDANSETRON HCL 4MG/2ML INJ IV PRN (19:30)
[2021-05-16] MEDS: METHYLPREDNISOLONE SOD SUCC 40 MG/ML VIAL IV SCH (20:18)
[2021-05-16] MEDS: ALBUTEROL (0.083%) 2.5MG/3ML NEB HHN SCH (20:31)
[2021-05-17] MEDS: ALBUTEROL (0.083%) 2.5MG/3ML NEB HHN SCH ×2 (00:26→03:58)
[2021-05-17] MEDS: METHYLPREDNISOLONE SOD SUCC 40 MG/ML VIAL IV SCH ×3 (04:28→21:10)
[2021-05-17 06:00] LABS: HEMATOCRIT. 35.2 % (42.0-52.0); HEMOGLOBIN. 12.1 g/dL (14.0-18.0); MEAN CORPUSCULAR HEMOGLOBIN 27.4 pg (28.0-32.0); MEAN CORPUSCULAR VOLUME 79.8 fL (80.0-94.0); MEAN PLATELET VOLUME 9.4 fl (7.4-10.4); PLATELET 241 x1000/uL (130-400); RED BLOOD CELL COUNT 4.42 mill/uL (4.7-6.1); RED CELL DISTRIBUTION WIDTH 20.4 % (11.6-14.6)
[2021-05-17 06:05] LABS: CHLORIDE 106 mEq/L (98-107)
[2021-05-17 07:53] LABS: PLATELET ESTIMATE NORMAL
[2021-05-17] MEDS ORDERED: ALBUTEROL (0.5%) 2.5MG/0.5ML NEB HHN ONE (07:58)
[2021-05-17 08:27] LABS: *AMPHETAMINES SCREEN URINE NEGATIVE (NEGATIVE); *BARBITURATES SCREEN URINE NEGATIVE (NEGATIVE)
[2021-05-17 08:29] LABS: *BENZODIAZEPINES SCREEN URINE NEGATIVE (NEGATIVE); *COCAINE SCREEN URINE PRESUMTIVE POSITIVE (NEGATIVE); CANNABINOID URINE SCREEN NEGATIVE (NEGATIVE); OPIATES URINE SCREEN NEGATIVE (NEGATIVE); PHENCYCLIDINE URINE SCREEN NEGATIVE (NEGATIVE)
[2021-05-17 09:00] VITALS: BP 164/82
[2021-05-17 09:32] LABS: METHADONE URINE SCREEN NEGATIVE (NEGATIVE)
[2021-05-17 10:00] VITALS: BP 162/84
[2021-05-17 12:00] VITALS: BP 155/91
[2021-05-17] MEDS: LORAZEPAM 0.5MG TABLET PO PRN ×3 (13:33→22:04)
[2021-05-17] MEDS: IPRATROPIUM/ALBUTEROL 0.5-3(2.5)MG/3ML NEB HHN PRN ×2 (13:41→16:13)
[2021-05-17] MEDS ORDERED: SIMV10TA97 MT (13:49)
[2021-05-17] MEDS: CLOPIDOGREL 75MG TABLET PO SCH (15:55)
[2021-05-17] MEDS: BENAZEPRIL 5MG TABLET PO SCH (15:55)
[2021-05-17 16:07] VITALS: BP 137/69
[2021-05-17 18:13] LABS: BG BASE EXCESS -0.2 mmol/L (-2.0-2.0); BG CARBOXYHEMOGLOBIN 0.3 % (0.5-1.5); BG DEOXYHEMOGLOBIN 4.7 % (0.0-5.0); BG HCO3 ACT 24.5 mmol/L (22.0-26.0); BG METHEMOGLOBIN 0.6 % (0.0-1.5); BG OXYGEN SATURATION 95.3 % (92.0-98.5); BG OXYHEMOGLOBIN 94.4 % (94.0-97.0); BG PCO2 40.5 mmHg (35.0-45.0); BG PO2 84.4 mmHg (75.0-100.0); BG SAMPLE SITE RIGHT RADIAL; BG TOTAL HEMOGLOBIN 12.2 g/dL (12.0-18.0); BG VENT MODE NASAL CANNULA
[2021-05-17 18:25] LABS: TOTAL IRON BINDING CAPACITY 404 ug/dL (250-450)
[2021-05-17 20:00] VITALS: BP 130/69
[2021-05-17] MEDS: IPRATROPIUM/ALBUTEROL 0.5-3(2.5)MG/3ML NEB HHN SCH ×2 (20:08→23:47)
[2021-05-17] MEDS: ATORVASTATIN CALCIUM 10MG TABLET PO SCH (21:10)
[2021-05-17] MEDS: TRAZODONE HCL 50MG TABLET PO SCH (21:10)
[2021-05-17] MEDS: THEOPHYLLINE ANHYDROUS 80 MG/15 ML 120ML PO SCH (21:11)
[2021-05-17] MEDS: BENZONATATE 100MG CAPSULE PO PRN (21:20)
[2021-05-18] VITALS: BP 144/76
[2021-05-18] MEDS: LORAZEPAM 0.5MG TABLET PO PRN ×4 (02:14→20:25)
[2021-05-18 04:00] VITALS: BP 101/65
[2021-05-18] MEDS: IPRATROPIUM/ALBUTEROL 0.5-3(2.5)MG/3ML NEB HHN SCH ×6 (04:36→23:27)
[2021-05-18] MEDS: METHYLPREDNISOLONE SOD SUCC 40 MG/ML VIAL IV SCH ×3 (05:32→20:17)
[2021-05-18] MEDS: BENZONATATE 100MG CAPSULE PO PRN (05:33)
[2021-05-18] MEDS: THEOPHYLLINE ANHYDROUS 80 MG/15 ML 120ML PO SCH ×3 (05:39→22:01)
[2021-05-18 06:16] LABS: CHLORIDE 108 mEq/L (98-107)
[2021-05-18 06:21] LABS: BASOPHILS % 0.1 % (0.0-2.0); HEMATOCRIT. 33.2 % (42.0-52.0); HEMOGLOBIN. 11.1 g/dL (14.0-18.0); LYMPHOCYTES % 7.3 % (20.0-50.0); MEAN CORPUSCULAR HEMOGLOBIN 27.1 pg (28.0-32.0); MEAN CORPUSCULAR VOLUME 81.3 fL (80.0-94.0); MEAN PLATELET VOLUME 9.6 fl (7.4-10.4); MONOCYTES % 3.4 % (2.0-8.0); NEUTROPHILS % 89.2 % (40.0-76.0); PLATELET 217 x1000/uL (130-400); RED BLOOD CELL COUNT 4.09 mill/uL (4.7-6.1); RED CELL DISTRIBUTION WIDTH 20.6 % (11.6-14.6)
[2021-05-18 08:00] VITALS: BP 133/98
[2021-05-18] MEDS: HYDROCHLOROTHIAZIDE 12.5MG CAPSULE PO SCH (09:16)
[2021-05-18] MEDS: CLOPIDOGREL 75MG TABLET PO SCH (09:16)
[2021-05-18] MEDS: BENAZEPRIL 5MG TABLET PO SCH (09:16)
[2021-05-18 12:00] VITALS: BP 124/49
[2021-05-18 16:00] VITALS: BP 142/73
[2021-05-18 20:00] VITALS: BP 128/68
[2021-05-18] MEDS: ATORVASTATIN CALCIUM 10MG TABLET PO SCH (20:17)
[2021-05-18] MEDS: TRAZODONE HCL 50MG TABLET PO SCH (20:17)
[2021-05-19] VITALS: BP 134/80
[2021-05-19] MEDS: LORAZEPAM 0.5MG TABLET PO PRN (01:05)
[2021-05-19] MEDS: BENZONATATE 100MG CAPSULE PO PRN (01:05)
[2021-05-19] MEDS: IPRATROPIUM/ALBUTEROL 0.5-3(2.5)MG/3ML NEB HHN SCH ×3 (02:24→11:57)
[2021-05-19 04:00] VITALS: BP 159/76
[2021-05-19] MEDS: IPRATROPIUM/ALBUTEROL 0.5-3(2.5)MG/3ML NEB HHN PRN (04:50)
[2021-05-19] MEDS: METHYLPREDNISOLONE SOD SUCC 40 MG/ML VIAL IV SCH ×2 (05:04→13:44)
[2021-05-19] MEDS: THEOPHYLLINE ANHYDROUS 80 MG/15 ML 120ML PO SCH ×2 (05:04→13:44)
[2021-05-19] MEDS: CLOPIDOGREL 75MG TABLET PO SCH (09:17)
[2021-05-19] MEDS: BENAZEPRIL 5MG TABLET PO SCH (09:17)
[2021-05-19] MEDS: HYDROCHLOROTHIAZIDE 12.5MG CAPSULE PO SCH (09:17)
[2021-05-19] MEDS ORDERED: ALPR0.25 PO (11:30)
[2021-05-19] MEDS ORDERED: MED4 MT (11:30)
[2021-05-19] MEDS ORDERED: ALBU18HF2 IH (11:30)
[2021-05-19] MEDS ORDERED: IPRA3AMP9 NEB (11:30)
[2021-05-19 14:17] VITALS: BP 124/78
== END 2021-05-19 14:50 | disposition home or self-care (01) | DRG 917 ==
LOC: ER 15:31 → EDBEDREQTM 16:47 → EDBEDREQSVC 16:47 → EDBEDREQ 16:47 → 8WST 18:32 → EDBEDREQ 18:42 → EDBEDREQTM 18:42 → EDBEDREQSVC 05-17 07:50 → ENRESERV 05-17 08:04
PROVIDERS: ADMIT Internal Medicine; ATTEND Internal Medicine
DX: T40.5X1A Poisoning by cocaine, accidental (unintentional), initial encounter (principal); J96.00 Acute respiratory failure, unspecified whether with hypoxia or hypercapnia; J68.0 Bronchitis and pneumonitis due to chemicals, gases, fumes and vapors; J44.1 Chronic obstructive pulmonary disease with (acute) exacerbation; D50.9 Iron deficiency anemia, unspecified; E78.5 Hyperlipidemia, unspecified; F14.10 Cocaine abuse, uncomplicated; F41.9 Anxiety disorder, unspecified; I10 Essential (primary) hypertension; I25.10 Atherosclerotic heart disease of native coronary artery without angina pectoris; T65.891A Toxic effect of other specified substances, accidental (unintentional), initial encounter; Z79.51 Long term (current) use of inhaled steroids; Z79.899 Other long term (current) drug therapy; Z99.81 Dependence on supplemental oxygen; Z82.49 Family history of ischemic heart disease and other diseases of the circulatory system; Z87.891 Personal history of nicotine dependence; Y92.89 Other specified places as the place of occurrence of the external cause
CPT/HCPCS: 36415; 36600; 71045; 80048; 80053; 80305; 82375; 82728; 82805; 83540; 83550; 83880; 84443; 84484; 85025; 85379; 93005; 94640; 99285; C1893; J2920; J2930; J3475; J3490; J7060

== ENCOUNTER 2021-07-03 06:59 | Inpatient (IN) | payer OTHER ==
[~2021-07-03] VITALS: Ht 172.7 cm; Wt 81.9 kg
[~2021-07-03 06:59] MED LIST changes: +ALBU6.7H9 INH; -CLOP-31 PO; +CLOP75TA4 PO; +MED4 MT; -P20 MT; +P50 MT; +SIMV10TA97 MT
[2021-07-03] MEDS ORDERED: METHYLPREDNISOLONE SOD SUCC 125 MG/2 ML VIAL IV STA (07:05)
[2021-07-03] MEDS ORDERED: IPRATROPIUM BROMIDE (0.02%) 0.5MG/2.5ML NEB HHN STA (07:05)
[2021-07-03] MEDS ORDERED: MAGNESIUM 2 G PREMIX 50 ML IV ONE (07:15)
[2021-07-03 07:39] LABS: CHLORIDE 107 mEq/L (98-107)
[2021-07-03] MEDS: ALBUTEROL (0.083%) 2.5MG/3ML NEB HHN SCH ×3 (07:43→08:45)
[2021-07-03 07:49] LABS: BASOPHILS % 0.5 % (0.0-2.0); HEMATOCRIT. 39.1 % (42.0-52.0); HEMOGLOBIN. 13.3 g/dL (14.0-18.0); LYMPHOCYTES % 10.8 % (20.0-50.0); MEAN CORPUSCULAR HEMOGLOBIN 27.9 pg (28.0-32.0); MEAN CORPUSCULAR VOLUME 82.1 fL (80.0-94.0); MEAN PLATELET VOLUME 9.7 fl (7.4-10.4); MONOCYTES % 10.1 % (2.0-8.0); NEUTROPHILS % 78.6 % (40.0-76.0); PLATELET 270 x1000/uL (130-400); PROTHROMBIN TIME 10.7 sec (9.6-11.0); RED BLOOD CELL COUNT 4.76 mill/uL (4.7-6.1); RED CELL DISTRIBUTION WIDTH 19.9 % (11.6-14.6)
[2021-07-03] MEDS ORDERED: ACETAMINOPHEN 325MG TABLET PO PRN (22:30)
[2021-07-03] MEDS ORDERED: ONDANSETRON HCL 4MG/2ML INJ IV PRN (22:30)
[2021-07-03] MEDS ORDERED: LEVOFLOXACIN 500MG PREMIX 100 ML IV SCH (23:00)
[2021-07-04] VITALS (8 sets, daily range): BP systolic 109–181; BP diastolic 69–102
[2021-07-04] MEDS: IPRATROPIUM/ALBUTEROL 0.5-3(2.5)MG/3ML NEB HHN SCH ×6 (01:20→21:07)
[2021-07-04] MEDS: LEVOFLOXACIN 500MG PREMIX 100 ML IV SCH (01:40)
[2021-07-04] MEDS: ENOXAPARIN 40MG/0.4ML SYR SUBCUT SCH (01:41)
[2021-07-04] MEDS: LOSARTAN POTASSIUM 100 MG TABLET PO SCH (01:42)
[2021-07-04] MEDS: ALPRAZOLAM 0.25 MG TABLET PO PRN ×2 (02:04→19:04)
[2021-07-04] MEDS: METHYLPREDNISOLONE SOD SUCC 40 MG/ML VIAL IV SCH ×3 (05:27→21:25)
[2021-07-04] MEDS: THEOPHYLLINE ANHYDROUS 80 MG/15 ML 120ML PO SCH ×3 (05:30→21:27)
[2021-07-04 06:26] LABS: CHLORIDE 106 mEq/L (98-107)
[2021-07-04 06:27] LABS: BASOPHILS % 0.2 % (0.0-2.0); HEMATOCRIT. 35.1 % (42.0-52.0); HEMOGLOBIN. 11.8 g/dL (14.0-18.0); LYMPHOCYTES % 14.1 % (20.0-50.0); MEAN CORPUSCULAR VOLUME 83.5 fL (80.0-94.0); MEAN PLATELET VOLUME 10.2 fl (7.4-10.4); MONOCYTES % 9.2 % (2.0-8.0); NEUTROPHILS % 76.5 % (40.0-76.0); PLATELET 219 x1000/uL (130-400); RED BLOOD CELL COUNT 4.21 mill/uL (4.7-6.1); RED CELL DISTRIBUTION WIDTH 19.9 % (11.6-14.6)
[2021-07-04 06:34] LABS: CREATINE KINASE 116 IU/L (39-308)
[2021-07-04 06:39] LABS: CREATINE KINASE MB FRACTION 3.2 ng/mL (0.5-3.6)
[2021-07-04] MEDS: CLOPIDOGREL 75MG TABLET PO SCH (08:45)
[2021-07-04] MEDS ORDERED: LOSARTAN POTASSIUM 100 MG TABLET PO SCH (09:00)
[2021-07-04] MEDS: LORAZEPAM 1MG TABLET PO PRN (10:31)
[2021-07-04 15:14] LABS: CREATINE KINASE 88 IU/L (39-308)
[2021-07-04 15:15] LABS: CREATINE KINASE MB FRACTION 2.5 ng/mL (0.5-3.6)
[2021-07-04] MEDS: TRAZODONE HCL 50MG TABLET PO SCH (21:25)
[2021-07-05] VITALS: BP 160/75
[2021-07-05] MEDS: ENOXAPARIN 40MG/0.4ML SYR SUBCUT SCH ×2 (00:06→22:00)
[2021-07-05] MEDS: LEVOFLOXACIN 500MG PREMIX 100 ML IV SCH (00:06)
[2021-07-05] MEDS: LORAZEPAM 1MG TABLET PO PRN ×3 (00:06→13:50)
[2021-07-05] MEDS: IPRATROPIUM/ALBUTEROL 0.5-3(2.5)MG/3ML NEB HHN SCH ×7 (00:33→22:30)
[2021-07-05 04:00] VITALS: BP 157/74
[2021-07-05] MEDS: ALPRAZOLAM 0.25 MG TABLET PO PRN ×2 (05:09→20:35)
[2021-07-05] MEDS: METHYLPREDNISOLONE SOD SUCC 40 MG/ML VIAL IV SCH ×3 (05:09→21:59)
[2021-07-05] MEDS: THEOPHYLLINE ANHYDROUS 80 MG/15 ML 120ML PO SCH ×3 (05:09→22:00)
[2021-07-05 08:00] VITALS: BP 141/79
[2021-07-05] MEDS: LOSARTAN POTASSIUM 100 MG TABLET PO SCH (08:43)
[2021-07-05] MEDS: CLOPIDOGREL 75MG TABLET PO SCH (08:43)
[2021-07-05 12:00] VITALS: BP 111/70
[2021-07-05 16:00] VITALS: BP 152/74
[2021-07-05 20:00] VITALS: BP 156/74
[2021-07-05] MEDS: TRAZODONE HCL 50MG TABLET PO SCH (20:35)
[2021-07-06] VITALS: BP 130/81
[2021-07-06] MEDS: LORAZEPAM 1MG TABLET PO PRN ×2 (00:14→10:20)
[2021-07-06] MEDS: IPRATROPIUM/ALBUTEROL 0.5-3(2.5)MG/3ML NEB HHN SCH ×2 (02:30→08:51)
[2021-07-06 04:00] VITALS: BP 137/69
[2021-07-06] MEDS: METHYLPREDNISOLONE SOD SUCC 40 MG/ML VIAL IV SCH (05:01)
[2021-07-06] MEDS: THEOPHYLLINE ANHYDROUS 80 MG/15 ML 120ML PO SCH (05:01)
[2021-07-06] MEDS: ALPRAZOLAM 0.25 MG TABLET PO PRN (05:01)
[2021-07-06 08:00] VITALS: BP 133/78
[2021-07-06] MEDS: LOSARTAN POTASSIUM 100 MG TABLET PO SCH (10:20)
[2021-07-06] MEDS: CLOPIDOGREL 75MG TABLET PO SCH (10:20)
[2021-07-06 10:47] VITALS: BP 133/78
[2021-07-06] MEDS ORDERED: LEVOFLOXACIN 500MG TABLET PO SCH (11:00)
[2021-07-06] MEDS ORDERED: PNEUMOCOCCAL 23-VAL P-SAC VAC 0.5 ML IM ONE (11:45)
== END 2021-07-06 11:55 | disposition home or self-care (01) | DRG 190 ==
LOC: ER 06:59 → MICUSO 10:00 → EDBEDREQ 10:07 → 8WST 23:51
PROVIDERS: ADMIT Internal Medicine; ATTEND Internal Medicine
PROC: 5A09357 Assistance with Respiratory Ventilation, Less than 24 Consecutive Hours, Continuous Positive Airway Pressure (ICD-10-PCS; principal; 2021-07-03)
DX: J44.1 Chronic obstructive pulmonary disease with (acute) exacerbation (principal); J96.21 Acute and chronic respiratory failure with hypoxia; I10 Essential (primary) hypertension; E78.5 Hyperlipidemia, unspecified; F14.10 Cocaine abuse, uncomplicated; I25.10 Atherosclerotic heart disease of native coronary artery without angina pectoris; F41.9 Anxiety disorder, unspecified; Z95.5 Presence of coronary angioplasty implant and graft; Z79.51 Long term (current) use of inhaled steroids; Z79.899 Other long term (current) drug therapy; Z86.73 Personal history of transient ischemic attack (TIA), and cerebral infarction without residual deficits; Z82.49 Family history of ischemic heart disease and other diseases of the circulatory system
CPT/HCPCS: 36415; 71045; 80048; 80053; 82550; 82553; 83880; 84484; 85025; 93005; 94640; 94660; 99291; J1650; J1956; J2920; J2930; J3475; J7040

== ENCOUNTER 2021-07-15 18:41 | Inpatient (IN) | payer OTHER ==
[~2021-07-15] VITALS: Ht 175.3 cm; Wt 69.4 kg
[2021-07-15] MEDS ORDERED: ALBUTEROL (0.083%) 2.5MG/3ML NEB HHN STA (19:17)
[2021-07-15] MEDS ORDERED: METHYLPREDNISOLONE SOD SUCC 125 MG/2 ML VIAL IV STA (19:17)
[2021-07-15 21:14] LABS: HEMOGLOBIN. 13.3 g/dL (14.0-18.0); MEAN CORPUSCULAR HEMOGLOBIN 28.3 pg (28.0-32.0); MEAN CORPUSCULAR VOLUME 80.9 fL (80.0-94.0); PLATELET 159 x1000/uL (130-400); RED CELL DISTRIBUTION WIDTH 18.8 % (11.6-14.6)
[2021-07-15 21:21] LABS: CHLORIDE 106 mEq/L (98-107)
[2021-07-15 21:28] LABS: ETHANOL BLOOD < 10 mg/dL
[2021-07-15] MEDS ORDERED: ASPIRIN 81MG TABLET PO ONE (21:45)
[2021-07-15] MEDS ORDERED: SODIUM CHLORIDE 0.9% 1,000 ML IV ONE (21:45)
[2021-07-15 22:26] LABS: PLATELET ESTIMATE NORMAL
[2021-07-15] MEDS ORDERED: DOCUSATE SODIUM 100MG CAPSULE PO PRN (23:45)
[2021-07-15] MEDS ORDERED: NALOXONE HCL 0.4MG/ML VIAL IV PRN (23:45)
[2021-07-15] MEDS ORDERED: ONDANSETRON HCL 4MG/2ML INJ IV PRN (23:45)
[2021-07-15] MEDS ORDERED: ACETAMINOPHEN 325MG TABLET PO PRN (23:45)
[2021-07-15] MEDS ORDERED: HYDROCODONE/ACETAMINOPHEN 5/325MG TABLET PO PRN (23:45)
[2021-07-16] MEDS: SODIUM CHLORIDE 0.9% 1,000 ML IV SCH ×2 (00:05→14:03)
[2021-07-16 03:15] LABS: CLARITY URINE CLEAR (CLEAR); COLOR URINE YELLOW (YELLOW); KETONES URINE 1+ (NEGATIVE); LEUKOCYTE ESTERASE URINE NEGATIVE (NEGATIVE); NITRITE URINE NEGATIVE (NEGATIVE); OCCULT BLOOD URINE TRACE (NEGATIVE); PROTEIN URINE TRACE (NEGATIVE); SPECIFIC GRAVITY URINE 1.018 (1.005-1.030); UROBILINOGEN URINE 0.2 E.U./dL (0.2-1.0)
[2021-07-16 03:22] LABS: CHLORIDE 104 mEq/L (98-107)
[2021-07-16 03:27] LABS: *AMPHETAMINES SCREEN URINE NEGATIVE (NEGATIVE); *COCAINE SCREEN URINE PRESUMTIVE POSITIVE (NEGATIVE)
[2021-07-16 03:28] LABS: *BARBITURATES SCREEN URINE NEGATIVE (NEGATIVE); *BENZODIAZEPINES SCREEN URINE NEGATIVE (NEGATIVE); CANNABINOID URINE SCREEN NEGATIVE (NEGATIVE); METHADONE URINE SCREEN NEGATIVE (NEGATIVE); OPIATES URINE SCREEN NEGATIVE (NEGATIVE); PHENCYCLIDINE URINE SCREEN NEGATIVE (NEGATIVE)
[2021-07-16 03:31] LABS: HDL CHOLESTEROL 66 mg/dL (40-59); LDL CHOLESTEROL 94 mg/dL (5-100)
[2021-07-16 03:34] LABS: CREATINE KINASE MB FRACTION 10.9 ng/mL (0.5-3.6)
[2021-07-16 03:45] LABS: CREATINE KINASE 4667 IU/L (39-308)
[2021-07-16 04:03] LABS: HEPATITIS B SURFACE ANTIGEN NEGATIVE
[2021-07-16] MEDS: METHYLPREDNISOLONE SOD SUCC 40 MG/ML VIAL IV SCH ×3 (06:08→21:37)
[2021-07-16] MEDS: ASPIRIN 81MG EC TABLET PO SCH (09:21)
[2021-07-16] MEDS: HEPARIN 5000 UNITS/ML VIAL SUBCUT SCH ×2 (09:21→21:37)
[2021-07-16] MEDS: IPRATROPIUM/ALBUTEROL 0.5-3(2.5)MG/3ML NEB NEB PRN ×3 (10:41→19:28)
[2021-07-17 00:44] VITALS: BP 161/77
[2021-07-17 04:00] VITALS: BP 148/67
[2021-07-17] MEDS: METHYLPREDNISOLONE SOD SUCC 40 MG/ML VIAL IV SCH ×2 (06:01→14:15)
[2021-07-17] MEDS: SODIUM CHLORIDE 0.9% 1,000 ML IV SCH ×2 (06:03→18:48)
[2021-07-17] MEDS: IPRATROPIUM/ALBUTEROL 0.5-3(2.5)MG/3ML NEB NEB PRN ×3 (07:56→16:54)
[2021-07-17 08:00] VITALS: BP 161/74
[2021-07-17] MEDS: HEPARIN 5000 UNITS/ML VIAL SUBCUT SCH ×2 (08:46→08:55)
[2021-07-17] MEDS: ASPIRIN 81MG EC TABLET PO SCH (08:46)
[2021-07-17] MEDS: LORAZEPAM 0.5MG TABLET PO PRN ×2 (11:22→23:02)
[2021-07-17 12:00] VITALS: BP 154/82
[2021-07-17 16:00] VITALS: BP 178/96
[2021-07-17] MEDS: LOSARTAN POTASSIUM 100 MG TABLET PO SCH (16:44)
[2021-07-17] MEDS: CLOPIDOGREL 75MG TABLET PO SCH (16:44)
[2021-07-17] MEDS: METHYLPREDNISOLONE SOD SUCC 125 MG/2 ML VIAL IV SCH ×2 (18:45→23:01)
[2021-07-17] MEDS: THEOPHYLLINE ANHYDROUS 80 MG/15 ML 120ML PO SCH (18:50)
[2021-07-17 20:00] VITALS: BP 140/82
[2021-07-17] MEDS: IPRATROPIUM/ALBUTEROL 0.5-3(2.5)MG/3ML NEB HHN SCH (20:48)
[2021-07-17] MEDS: TRAZODONE HCL 50MG TABLET PO SCH (21:10)
[2021-07-17] MEDS: ATORVASTATIN CALCIUM 10MG TABLET PO SCH (21:10)
[2021-07-18] VITALS: BP 138/79
[2021-07-18] MEDS: IPRATROPIUM/ALBUTEROL 0.5-3(2.5)MG/3ML NEB HHN SCH ×6 (00:46→21:23)
[2021-07-18 04:00] VITALS: BP 171/88
[2021-07-18] MEDS: GUAIFENESIN 200MG/10ML SUGAR FREE UDC PO PRN ×2 (04:35→20:35)
[2021-07-18] MEDS: CLONIDINE 0.1MG TABLET PO PRN (04:36)
[2021-07-18] MEDS: SODIUM CHLORIDE 0.9% 1,000 ML IV SCH ×3 (05:06→17:05)
[2021-07-18] MEDS: METHYLPREDNISOLONE SOD SUCC 125 MG/2 ML VIAL IV SCH ×4 (05:06→23:33)
[2021-07-18] MEDS: THEOPHYLLINE ANHYDROUS 80 MG/15 ML 120ML PO SCH ×2 (05:15→17:13)
[2021-07-18 06:42] LABS: HEMATOCRIT. 35.2 % (42.0-52.0); MEAN CORPUSCULAR HEMOGLOBIN 27.9 pg (28.0-32.0); MEAN PLATELET VOLUME 10.4 fl (7.4-10.4); PLATELET 153 x1000/uL (130-400); RED BLOOD CELL COUNT 4.29 mill/uL (4.7-6.1); RED CELL DISTRIBUTION WIDTH 19.1 % (11.6-14.6)
[2021-07-18 06:49] LABS: CHLORIDE 110 mEq/L (98-107)
[2021-07-18 08:00] VITALS: BP 142/77
[2021-07-18] MEDS ORDERED: BENAZEPRIL 5MG TABLET PO SCH (09:00)
[2021-07-18] MEDS: HYDROCHLOROTHIAZIDE 12.5MG CAPSULE PO SCH (09:10)
[2021-07-18] MEDS: ASPIRIN 81MG EC TABLET PO SCH (09:11)
[2021-07-18] MEDS: LOSARTAN POTASSIUM 100 MG TABLET PO SCH (09:11)
[2021-07-18] MEDS: CLOPIDOGREL 75MG TABLET PO SCH (09:11)
[2021-07-18] MEDS: HEPARIN 5000 UNITS/ML VIAL SUBCUT SCH ×2 (09:11→20:35)
[2021-07-18] MEDS: LORAZEPAM 0.5MG TABLET PO PRN ×2 (09:20→22:29)
[2021-07-18 12:03] VITALS: BP 150/79
[2021-07-18 16:50] VITALS: BP 138/78
[2021-07-18 20:00] VITALS: BP 144/70
[2021-07-18] MEDS: TRAZODONE HCL 50MG TABLET PO SCH (20:33)
[2021-07-18] MEDS: ATORVASTATIN CALCIUM 10MG TABLET PO SCH (20:33)
[2021-07-18 21:25] LABS: PLATELET ESTIMATE NORMAL
[2021-07-19] VITALS: BP 139/63
[2021-07-19] MEDS: IPRATROPIUM/ALBUTEROL 0.5-3(2.5)MG/3ML NEB HHN SCH ×6 (01:09→20:27)
[2021-07-19 04:00] VITALS: BP 141/74
[2021-07-19] MEDS: METHYLPREDNISOLONE SOD SUCC 125 MG/2 ML VIAL IV SCH ×3 (05:11→17:37)
[2021-07-19] MEDS: THEOPHYLLINE ANHYDROUS 80 MG/15 ML 120ML PO SCH ×3 (05:31→21:20)
[2021-07-19] MEDS: GUAIFENESIN 200MG/10ML SUGAR FREE UDC PO PRN (05:31)
[2021-07-19 06:11] LABS: HEMATOCRIT. 35.8 % (42.0-52.0); MEAN CORPUSCULAR HEMOGLOBIN 27.8 pg (28.0-32.0); MEAN PLATELET VOLUME 10.8 fl (7.4-10.4); PLATELET 148 x1000/uL (130-400); RED BLOOD CELL COUNT 4.31 mill/uL (4.7-6.1); RED CELL DISTRIBUTION WIDTH 18.7 % (11.6-14.6)
[2021-07-19 07:19] LABS: CHLORIDE 106 mEq/L (98-107)
[2021-07-19 08:26] VITALS: BP 109/57
[2021-07-19] MEDS: HYDROCHLOROTHIAZIDE 12.5MG CAPSULE PO SCH ×2 (09:00→09:03)
[2021-07-19] MEDS: SODIUM CHLORIDE 0.9% 1,000 ML IV SCH ×2 (09:00→21:20)
[2021-07-19] MEDS: ASPIRIN 81MG EC TABLET PO SCH (09:02)
[2021-07-19] MEDS: CLOPIDOGREL 75MG TABLET PO SCH (09:02)
[2021-07-19] MEDS: LOSARTAN POTASSIUM 100 MG TABLET PO SCH (09:04)
[2021-07-19] MEDS: HEPARIN 5000 UNITS/ML VIAL SUBCUT SCH ×2 (09:09→21:20)
[2021-07-19] MEDS: LORAZEPAM 0.5MG TABLET PO PRN ×2 (09:53→21:18)
[2021-07-19 12:31] VITALS: BP 125/65
[2021-07-19 16:15] VITALS: BP 148/82
[2021-07-19 17:53] LABS: PLATELET ESTIMATE NORMAL
[2021-07-19 20:00] VITALS: BP 158/88
[2021-07-19] MEDS: TRAZODONE HCL 50MG TABLET PO SCH (21:18)
[2021-07-19] MEDS: ATORVASTATIN CALCIUM 10MG TABLET PO SCH (21:18)
[2021-07-20] VITALS: BP 162/95
[2021-07-20] MEDS: METHYLPREDNISOLONE SOD SUCC 125 MG/2 ML VIAL IV SCH ×5 (00:21→23:49)
[2021-07-20] MEDS: IPRATROPIUM/ALBUTEROL 0.5-3(2.5)MG/3ML NEB HHN SCH ×6 (01:23→20:14)
[2021-07-20 04:00] VITALS: BP 140/80
[2021-07-20] MEDS: THEOPHYLLINE ANHYDROUS 80 MG/15 ML 120ML PO SCH ×3 (06:35→21:44)
[2021-07-20] MEDS: LORAZEPAM 0.5MG TABLET PO PRN ×3 (06:35→23:49)
[2021-07-20 08:03] VITALS: BP 151/62
[2021-07-20] MEDS: HYDROCHLOROTHIAZIDE 12.5MG CAPSULE PO SCH (09:00)
[2021-07-20] MEDS: LOSARTAN POTASSIUM 100 MG TABLET PO SCH (09:32)
[2021-07-20] MEDS: CLOPIDOGREL 75MG TABLET PO SCH (09:32)
[2021-07-20] MEDS: ASPIRIN 81MG EC TABLET PO SCH (09:32)
[2021-07-20] MEDS: HEPARIN 5000 UNITS/ML VIAL SUBCUT SCH ×2 (09:33→21:44)
[2021-07-20] MEDS: SODIUM CHLORIDE 0.9% 1,000 ML IV SCH ×2 (10:40→23:55)
[2021-07-20 12:15] VITALS: BP 172/92
[2021-07-20] MEDS: CLONIDINE 0.1MG TABLET PO PRN ×2 (14:46→23:53)
[2021-07-20 16:30] VITALS: BP 125/92
[2021-07-20 20:00] VITALS: BP 132/55
[2021-07-20] MEDS: TRAZODONE HCL 50MG TABLET PO SCH (21:43)
[2021-07-20] MEDS: ATORVASTATIN CALCIUM 10MG TABLET PO SCH (21:43)
[2021-07-20] MEDS ORDERED: TERBUTALINE SULFATE 1MG/ML VIAL SUBCUT NR (22:30)
[2021-07-21] VITALS: BP 167/90
[2021-07-21] MEDS: IPRATROPIUM/ALBUTEROL 0.5-3(2.5)MG/3ML NEB HHN SCH ×6 (00:39→20:44)
[2021-07-21 04:00] VITALS: BP 140/78
[2021-07-21] MEDS: THEOPHYLLINE ANHYDROUS 80 MG/15 ML 120ML PO SCH ×3 (06:05→21:52)
[2021-07-21] MEDS: METHYLPREDNISOLONE SOD SUCC 125 MG/2 ML VIAL IV SCH ×3 (06:05→18:01)
[2021-07-21 07:20] LABS: HEMATOCRIT. 35.7 % (42.0-52.0); MEAN PLATELET VOLUME 10.3 fl (7.4-10.4); PLATELET 187 x1000/uL (130-400); RED CELL DISTRIBUTION WIDTH 18.3 % (11.6-14.6)
[2021-07-21 07:42] LABS: CHLORIDE 105 mEq/L (98-107)
[2021-07-21 08:00] VITALS: BP 167/47
[2021-07-21] MEDS: LORAZEPAM 0.5MG TABLET PO PRN ×2 (08:30→21:53)
[2021-07-21] MEDS: ASPIRIN 81MG EC TABLET PO SCH (08:30)
[2021-07-21] MEDS: CLOPIDOGREL 75MG TABLET PO SCH (08:30)
[2021-07-21] MEDS: LOSARTAN POTASSIUM 100 MG TABLET PO SCH (08:30)
[2021-07-21] MEDS: HEPARIN 5000 UNITS/ML VIAL SUBCUT SCH ×2 (08:31→21:52)
[2021-07-21] MEDS: HYDROCHLOROTHIAZIDE 12.5MG CAPSULE PO SCH (08:31)
[2021-07-21] MEDS: CLONIDINE 0.1MG TABLET PO PRN (08:33)
[2021-07-21 12:00] VITALS: BP 142/70
[2021-07-21] MEDS: SODIUM CHLORIDE 0.9% 1,000 ML IV SCH (12:45)
[2021-07-21 13:30] LABS: PLATELET ESTIMATE NORMAL
[2021-07-21 16:00] VITALS: BP 150/67
[2021-07-21 20:00] VITALS: BP 145/76
[2021-07-21] MEDS: ATORVASTATIN CALCIUM 10MG TABLET PO SCH (21:51)
[2021-07-21] MEDS: TRAZODONE HCL 50MG TABLET PO SCH (21:51)
[2021-07-22] VITALS (9 sets, daily range): BP systolic 115–165; BP diastolic 62–131
[2021-07-22] MEDS: IPRATROPIUM/ALBUTEROL 0.5-3(2.5)MG/3ML NEB HHN SCH ×2 (00:50→04:00)
[2021-07-22] MEDS: SODIUM CHLORIDE 0.9% 1,000 ML IV SCH (02:40)
[2021-07-22] MEDS: METHYLPREDNISOLONE SOD SUCC 125 MG/2 ML VIAL IV SCH ×4 (04:40→18:03)
[2021-07-22] MEDS: THEOPHYLLINE ANHYDROUS 80 MG/15 ML 120ML PO SCH (06:52)
[2021-07-22] MEDS: LORAZEPAM 0.5MG TABLET PO PRN (08:45)
[2021-07-22] MEDS: CLOPIDOGREL 75MG TABLET PO SCH (08:45)
[2021-07-22] MEDS: ASPIRIN 81MG EC TABLET PO SCH (08:45)
[2021-07-22] MEDS: LOSARTAN POTASSIUM 100 MG TABLET PO SCH (08:45)
[2021-07-22] MEDS: HEPARIN 5000 UNITS/ML VIAL SUBCUT SCH ×2 (08:46→21:32)
[2021-07-22] MEDS: HYDROCHLOROTHIAZIDE 12.5MG CAPSULE PO SCH (09:07)
[2021-07-22 09:30] LABS: CHLORIDE 105 mEq/L (98-107); HEMOGLOBIN. 14.1 g/dL (14.0-18.0); MEAN CORPUSCULAR HEMOGLOBIN 27.8 pg (28.0-32.0); MEAN CORPUSCULAR VOLUME 82.5 fL (80.0-94.0); MEAN PLATELET VOLUME 9.6 fl (7.4-10.4); PLATELET 257 x1000/uL (130-400); RED BLOOD CELL COUNT 5.09 mill/uL (4.7-6.1); RED CELL DISTRIBUTION WIDTH 18.3 % (11.6-14.6)
[2021-07-22 09:41] LABS: CREATINE KINASE 133 IU/L (39-308)
[2021-07-22 14:19] LABS: PLATELET ESTIMATE NORMAL
[2021-07-22] MEDS: CLONIDINE 0.1MG TABLET PO PRN ×2 (14:25→21:18)
[2021-07-22] MEDS: IPRATROPIUM BROMIDE (0.02%) 0.5MG/2.5ML NEB HHN SCH ×2 (15:31→21:50)
[2021-07-22] MEDS: TRAZODONE HCL 50MG TABLET PO SCH (21:16)
[2021-07-22] MEDS: ATORVASTATIN CALCIUM 10MG TABLET PO SCH (21:16)
[2021-07-23] VITALS (12 sets, daily range): BP systolic 112–181; BP diastolic 57–121
[2021-07-23] MEDS: IPRATROPIUM BROMIDE (0.02%) 0.5MG/2.5ML NEB HHN SCH ×5 (00:36→20:37)
[2021-07-23] MEDS: GUAIFENESIN 200MG/10ML SUGAR FREE UDC PO PRN ×2 (00:47→18:26)
[2021-07-23] MEDS: METHYLPREDNISOLONE SOD SUCC 125 MG/2 ML VIAL IV SCH ×4 (00:47→18:10)
[2021-07-23] MEDS: HEPARIN 5000 UNITS/ML VIAL SUBCUT SCH ×2 (09:04→22:37)
[2021-07-23] MEDS: ASPIRIN 81MG EC TABLET PO SCH (09:04)
[2021-07-23] MEDS: LOSARTAN POTASSIUM 100 MG TABLET PO SCH (09:04)
[2021-07-23] MEDS: CLOPIDOGREL 75MG TABLET PO SCH (09:04)
[2021-07-23] MEDS: HYDROCHLOROTHIAZIDE 12.5MG CAPSULE PO SCH (09:04)
[2021-07-23] MEDS: ALPRAZOLAM 0.25 MG TABLET PO PRN (18:10)
[2021-07-23] MEDS: TRAZODONE HCL 50MG TABLET PO SCH (22:38)
[2021-07-23] MEDS: ATORVASTATIN CALCIUM 10MG TABLET PO SCH (22:38)
[2021-07-24] VITALS (15 sets, daily range): BP systolic 119–157; BP diastolic 27–102
[2021-07-24] MEDS: METHYLPREDNISOLONE SOD SUCC 125 MG/2 ML VIAL IV SCH ×3 (00:15→12:38)
[2021-07-24] MEDS: IPRATROPIUM BROMIDE (0.02%) 0.5MG/2.5ML NEB HHN SCH ×6 (00:25→20:19)
[2021-07-24] MEDS: HYDROCHLOROTHIAZIDE 12.5MG CAPSULE PO SCH (09:47)
[2021-07-24] MEDS: CLOPIDOGREL 75MG TABLET PO SCH (09:47)
[2021-07-24] MEDS: HEPARIN 5000 UNITS/ML VIAL SUBCUT SCH ×2 (09:47→20:49)
[2021-07-24] MEDS: LOSARTAN POTASSIUM 100 MG TABLET PO SCH (09:48)
[2021-07-24] MEDS: ASPIRIN 81MG EC TABLET PO SCH (09:48)
[2021-07-24] MEDS: ALPRAZOLAM 0.25 MG TABLET PO PRN (17:39)
[2021-07-24] MEDS: METHYLPREDNISOLONE SOD SUCC 40 MG/ML VIAL IV SCH ×2 (17:39→23:32)
[2021-07-24] MEDS: TRAZODONE HCL 50MG TABLET PO SCH (20:48)
[2021-07-24] MEDS: ATORVASTATIN CALCIUM 10MG TABLET PO SCH (20:49)
[2021-07-25] VITALS (9 sets, daily range): BP systolic 108–181; BP diastolic 58–104
[2021-07-25] MEDS: IPRATROPIUM BROMIDE (0.02%) 0.5MG/2.5ML NEB HHN SCH ×6 (00:18→20:45)
[2021-07-25] MEDS: METHYLPREDNISOLONE SOD SUCC 40 MG/ML VIAL IV SCH ×3 (05:10→22:00)
[2021-07-25] MEDS: CLONIDINE 0.1MG TABLET PO PRN ×2 (05:23→23:26)
[2021-07-25] MEDS: HYDROCHLOROTHIAZIDE 12.5MG CAPSULE PO SCH (09:37)
[2021-07-25] MEDS: CLOPIDOGREL 75MG TABLET PO SCH (09:37)
[2021-07-25] MEDS: ASPIRIN 81MG EC TABLET PO SCH (09:37)
[2021-07-25] MEDS: LOSARTAN POTASSIUM 100 MG TABLET PO SCH (09:37)
[2021-07-25] MEDS: HEPARIN 5000 UNITS/ML VIAL SUBCUT SCH ×2 (09:37→20:34)
[2021-07-25] MEDS: ATORVASTATIN CALCIUM 10MG TABLET PO SCH (20:33)
[2021-07-25] MEDS: TRAZODONE HCL 50MG TABLET PO SCH (20:33)
[2021-07-26] VITALS (8 sets, daily range): BP systolic 133–161; BP diastolic 48–102
[2021-07-26] MEDS: IPRATROPIUM BROMIDE (0.02%) 0.5MG/2.5ML NEB HHN SCH ×4 (04:51→20:45)
[2021-07-26] MEDS: METHYLPREDNISOLONE SOD SUCC 40 MG/ML VIAL IV SCH ×3 (05:00→21:01)
[2021-07-26 06:06] LABS: CHLORIDE 102 mEq/L (98-107)
[2021-07-26 06:15] LABS: HEMATOCRIT. 46.1 % (42.0-52.0); HEMOGLOBIN. 15.4 g/dL (14.0-18.0); MEAN CORPUSCULAR HEMOGLOBIN 27.8 pg (28.0-32.0); MEAN CORPUSCULAR VOLUME 83.4 fL (80.0-94.0); MEAN PLATELET VOLUME 9.8 fl (7.4-10.4); PLATELET 450 x1000/uL (130-400); RED BLOOD CELL COUNT 5.53 mill/uL (4.7-6.1); RED CELL DISTRIBUTION WIDTH 18.1 % (11.6-14.6)
[2021-07-26] MEDS: HEPARIN 5000 UNITS/ML VIAL SUBCUT SCH ×2 (09:00→21:00)
[2021-07-26] MEDS: ASPIRIN 81MG EC TABLET PO SCH (09:00)
[2021-07-26] MEDS: LOSARTAN POTASSIUM 100 MG TABLET PO SCH (09:00)
[2021-07-26] MEDS: CLOPIDOGREL 75MG TABLET PO SCH (09:00)
[2021-07-26] MEDS: HYDROCHLOROTHIAZIDE 12.5MG CAPSULE PO SCH (09:00)
[2021-07-26 17:17] LABS: PLATELET ESTIMATE INCREASED
[2021-07-26] MEDS: ATORVASTATIN CALCIUM 10MG TABLET PO SCH (21:00)
[2021-07-26] MEDS: TRAZODONE HCL 50MG TABLET PO SCH (21:00)
[2021-07-26] MEDS: GUAIFENESIN 200MG/10ML SUGAR FREE UDC PO PRN (22:40)
[2021-07-27] VITALS (7 sets, daily range): BP systolic 103–153; BP diastolic 60–105
[2021-07-27] MEDS: IPRATROPIUM BROMIDE (0.02%) 0.5MG/2.5ML NEB HHN SCH ×6 (00:49→20:11)
[2021-07-27] MEDS: CLONIDINE 0.1MG TABLET PO PRN (04:35)
[2021-07-27 05:29] LABS: CHLORIDE 102 mEq/L (98-107)
[2021-07-27] MEDS: METHYLPREDNISOLONE SOD SUCC 40 MG/ML VIAL IV SCH ×2 (05:38→14:00)
[2021-07-27 06:16] LABS: HEMATOCRIT. 46.1 % (42.0-52.0); HEMOGLOBIN. 14.9 g/dL (14.0-18.0); MEAN CORPUSCULAR HEMOGLOBIN 27.3 pg (28.0-32.0); MEAN CORPUSCULAR VOLUME 84.4 fL (80.0-94.0); MEAN PLATELET VOLUME 9.2 fl (7.4-10.4); PLATELET 338 x1000/uL (130-400); RED BLOOD CELL COUNT 5.47 mill/uL (4.7-6.1); RED CELL DISTRIBUTION WIDTH 17.9 % (11.6-14.6)
[2021-07-27] MEDS: ASPIRIN 81MG EC TABLET PO SCH (08:51)
[2021-07-27] MEDS: HYDROCHLOROTHIAZIDE 12.5MG CAPSULE PO SCH (08:51)
[2021-07-27] MEDS: HEPARIN 5000 UNITS/ML VIAL SUBCUT SCH ×2 (08:51→21:00)
[2021-07-27] MEDS: CLOPIDOGREL 75MG TABLET PO SCH (08:51)
[2021-07-27] MEDS: LOSARTAN POTASSIUM 100 MG TABLET PO SCH (08:51)
[2021-07-27 19:42] LABS: PLATELET ESTIMATE NORMAL
[2021-07-27] MEDS: ATORVASTATIN CALCIUM 10MG TABLET PO SCH (21:00)
[2021-07-27] MEDS: TRAZODONE HCL 50MG TABLET PO SCH ×2 (21:00→22:57)
[2021-07-28] MEDS: IPRATROPIUM BROMIDE (0.02%) 0.5MG/2.5ML NEB HHN SCH ×6 (00:16→19:57)
[2021-07-28 08:00] VITALS: BP 149/73
[2021-07-28] MEDS: ASPIRIN 81MG EC TABLET PO SCH (08:11)
[2021-07-28] MEDS: HEPARIN 5000 UNITS/ML VIAL SUBCUT SCH ×2 (08:11→21:00)
[2021-07-28] MEDS: LOSARTAN POTASSIUM 100 MG TABLET PO SCH (08:11)
[2021-07-28] MEDS: CLOPIDOGREL 75MG TABLET PO SCH (08:11)
[2021-07-28] MEDS: HYDROCHLOROTHIAZIDE 12.5MG CAPSULE PO SCH (08:11)
[2021-07-28] MEDS ORDERED: HYDROCODONE/ACETAMINOPHEN 5/325MG TABLET PO PRN (08:15)
[2021-07-28] MEDS ORDERED: NALOXONE HCL 0.4MG/ML VIAL IV PRN (08:30)
[2021-07-28] MEDS ORDERED: METHYLPREDNISOLONE SOD SUCC 40 MG/ML VIAL IV SCH (09:00)
[2021-07-28 11:56] LABS: HEMATOCRIT. 38.2 % (42.0-52.0); MEAN CORPUSCULAR HEMOGLOBIN 28.1 pg (28.0-32.0); MEAN CORPUSCULAR VOLUME 82.2 fL (80.0-94.0); MEAN PLATELET VOLUME 9.1 fl (7.4-10.4); PLATELET 307 x1000/uL (130-400); RED BLOOD CELL COUNT 4.64 mill/uL (4.7-6.1); RED CELL DISTRIBUTION WIDTH 17.4 % (11.6-14.6)
[2021-07-28 12:00] VITALS: BP 127/83
[2021-07-28 12:32] LABS: CHLORIDE 102 mEq/L (98-107)
[2021-07-28 16:00] VITALS: BP 135/71
[2021-07-28 16:51] LABS: PLATELET ESTIMATE NORMAL
[2021-07-28] MEDS: TRAZODONE HCL 50MG TABLET PO SCH (21:00)
[2021-07-28] MEDS: ATORVASTATIN CALCIUM 10MG TABLET PO SCH (21:00)
[2021-07-29] MEDS: IPRATROPIUM BROMIDE (0.02%) 0.5MG/2.5ML NEB HHN SCH ×7 (00:01→20:20)
[2021-07-29] MEDS: ASPIRIN 81MG EC TABLET PO SCH (09:00)
[2021-07-29] MEDS: HYDROCHLOROTHIAZIDE 12.5MG CAPSULE PO SCH (09:00)
[2021-07-29] MEDS: HEPARIN 5000 UNITS/ML VIAL SUBCUT SCH ×2 (09:00→21:00)
[2021-07-29] MEDS: CLOPIDOGREL 75MG TABLET PO SCH (09:00)
[2021-07-29] MEDS: LOSARTAN POTASSIUM 100 MG TABLET PO SCH (09:00)
[2021-07-29 16:15] VITALS: BP 106/54
[2021-07-29] MEDS: ATORVASTATIN CALCIUM 10MG TABLET PO SCH (21:00)
[2021-07-29] MEDS: TRAZODONE HCL 50MG TABLET PO SCH (21:00)
[2021-07-30] MEDS: IPRATROPIUM BROMIDE (0.02%) 0.5MG/2.5ML NEB HHN SCH ×6 (01:05→21:30)
[2021-07-30 08:00] VITALS: BP 148/43
[2021-07-30] MEDS: HYDROCHLOROTHIAZIDE 12.5MG CAPSULE PO SCH (08:14)
[2021-07-30] MEDS: PREDNISONE 20MG TABLET PO SCH (08:14)
[2021-07-30] MEDS: LOSARTAN POTASSIUM 100 MG TABLET PO SCH (08:14)
[2021-07-30] MEDS: ASPIRIN 81MG EC TABLET PO SCH (08:14)
[2021-07-30] MEDS: CLOPIDOGREL 75MG TABLET PO SCH (08:14)
[2021-07-30] MEDS: HEPARIN 5000 UNITS/ML VIAL SUBCUT SCH ×2 (08:15→21:18)
[2021-07-30 12:00] VITALS: BP 107/51
[2021-07-30 16:00] VITALS: BP 118/67
[2021-07-30 20:00] VITALS: BP 118/51
[2021-07-30] MEDS: TRAZODONE HCL 50MG TABLET PO SCH (21:15)
[2021-07-30] MEDS: ATORVASTATIN CALCIUM 10MG TABLET PO SCH (21:15)
[2021-07-30] MEDS: ALPRAZOLAM 0.5 MG TABLET PO PRN (21:24)
[2021-07-31] VITALS: BP 147/80
[2021-07-31 04:00] VITALS: BP 122/52
[2021-07-31] MEDS: IPRATROPIUM BROMIDE (0.02%) 0.5MG/2.5ML NEB HHN SCH ×5 (05:20→21:47)
[2021-07-31 06:39] LABS: BASOPHILS % 0.5 % (0.0-2.0); EOSINOPHILS % 0.6 % (0.0-5.0); HEMATOCRIT. 36.3 % (42.0-52.0); HEMOGLOBIN. 12.2 g/dL (14.0-18.0); LYMPHOCYTES % 12.5 % (20.0-50.0); MEAN CORPUSCULAR HEMOGLOBIN 27.8 pg (28.0-32.0); MEAN CORPUSCULAR VOLUME 82.6 fL (80.0-94.0); MEAN PLATELET VOLUME 8.9 fl (7.4-10.4); MONOCYTES % 13.1 % (2.0-8.0); NEUTROPHILS % 73.3 % (40.0-76.0); PLATELET 253 x1000/uL (130-400); RED CELL DISTRIBUTION WIDTH 17.6 % (11.6-14.6)
[2021-07-31 06:43] LABS: CHLORIDE 101 mEq/L (98-107)
[2021-07-31 08:00] VITALS: BP 119/61
[2021-07-31] MEDS: HYDROCHLOROTHIAZIDE 12.5MG CAPSULE PO SCH (09:00)
[2021-07-31] MEDS: ASPIRIN 81MG EC TABLET PO SCH (09:03)
[2021-07-31] MEDS: CLOPIDOGREL 75MG TABLET PO SCH (09:03)
[2021-07-31] MEDS: LOSARTAN POTASSIUM 100 MG TABLET PO SCH (09:03)
[2021-07-31] MEDS: PREDNISONE 20MG TABLET PO SCH (09:03)
[2021-07-31] MEDS: HEPARIN 5000 UNITS/ML VIAL SUBCUT SCH ×2 (09:04→20:58)
[2021-07-31 12:00] VITALS: BP 103/47
[2021-07-31 16:00] VITALS: BP 124/71
[2021-07-31 20:00] VITALS: BP 106/47
[2021-07-31] MEDS: ATORVASTATIN CALCIUM 10MG TABLET PO SCH (20:57)
[2021-07-31] MEDS: TRAZODONE HCL 50MG TABLET PO SCH (20:57)
[2021-07-31] MEDS: ALPRAZOLAM 0.5 MG TABLET PO PRN (20:57)
[2021-08-01] VITALS: BP 128/80
[2021-08-01] MEDS: IPRATROPIUM BROMIDE (0.02%) 0.5MG/2.5ML NEB HHN SCH ×7 (01:38→21:15)
[2021-08-01 04:00] VITALS: BP 107/72
[2021-08-01 06:25] LABS: BASOPHILS % 0.1 % (0.0-2.0); EOSINOPHILS % 0.2 % (0.0-5.0); HEMATOCRIT. 34.7 % (42.0-52.0); LYMPHOCYTES % 12.3 % (20.0-50.0); MEAN CORPUSCULAR HEMOGLOBIN 28.1 pg (28.0-32.0); MEAN CORPUSCULAR VOLUME 81.1 fL (80.0-94.0); MEAN PLATELET VOLUME 9.3 fl (7.4-10.4); MONOCYTES % 11.5 % (2.0-8.0); NEUTROPHILS % 75.9 % (40.0-76.0); PLATELET 238 x1000/uL (130-400); RED BLOOD CELL COUNT 4.28 mill/uL (4.7-6.1); RED CELL DISTRIBUTION WIDTH 17.5 % (11.6-14.6)
[2021-08-01 07:13] LABS: CHLORIDE 103 mEq/L (98-107)
[2021-08-01 08:00] VITALS: BP 127/65
[2021-08-01] MEDS: PREDNISONE 20MG TABLET PO SCH (11:45)
[2021-08-01] MEDS: CLOPIDOGREL 75MG TABLET PO SCH (11:46)
[2021-08-01] MEDS: ASPIRIN 81MG EC TABLET PO SCH (11:46)
[2021-08-01] MEDS: LOSARTAN POTASSIUM 100 MG TABLET PO SCH (11:46)
[2021-08-01] MEDS: MAGNESIUM/ALUMINUM HYDROXIDE/SIMETHICONE 30ML UDC PO PRN (11:47)
[2021-08-01] MEDS: HEPARIN 5000 UNITS/ML VIAL SUBCUT SCH ×2 (11:47→21:06)
[2021-08-01 12:00] VITALS: BP 144/61
[2021-08-01] MEDS: HYDROCHLOROTHIAZIDE 12.5MG CAPSULE PO SCH (12:03)
[2021-08-01 16:00] VITALS: BP 109/67
[2021-08-01 20:00] VITALS: BP 110/58
[2021-08-01] MEDS: ATORVASTATIN CALCIUM 10MG TABLET PO SCH (21:06)
[2021-08-01] MEDS: TRAZODONE HCL 50MG TABLET PO SCH (21:06)
[2021-08-02] VITALS: BP 133/55
[2021-08-02] MEDS: ALPRAZOLAM 0.5 MG TABLET PO PRN ×2 (00:44→21:52)
[2021-08-02 04:00] VITALS: BP 127/73
[2021-08-02] MEDS: PREDNISONE 20MG TABLET PO SCH (07:50)
[2021-08-02 08:00] VITALS: BP 136/76
[2021-08-02] MEDS: CLOPIDOGREL 75MG TABLET PO SCH (09:22)
[2021-08-02] MEDS: LOSARTAN POTASSIUM 100 MG TABLET PO SCH (09:22)
[2021-08-02] MEDS: ASPIRIN 81MG EC TABLET PO SCH (09:22)
[2021-08-02] MEDS: HYDROCHLOROTHIAZIDE 12.5MG CAPSULE PO SCH (09:22)
[2021-08-02] MEDS: MAGNESIUM/ALUMINUM HYDROXIDE/SIMETHICONE 30ML UDC PO PRN (09:23)
[2021-08-02] MEDS: HEPARIN 5000 UNITS/ML VIAL SUBCUT SCH ×2 (09:25→21:45)
[2021-08-02] MEDS: IPRATROPIUM BROMIDE (0.02%) 0.5MG/2.5ML NEB HHN SCH ×3 (09:56→21:32)
[2021-08-02 12:00] VITALS: BP 136/76
[2021-08-02 16:00] VITALS: BP 136/76
[2021-08-02 20:00] VITALS: BP 115/71
[2021-08-02] MEDS: ATORVASTATIN CALCIUM 10MG TABLET PO SCH (21:43)
[2021-08-02] MEDS: TRAZODONE HCL 50MG TABLET PO SCH (21:43)
[2021-08-03] VITALS: BP 105/53
[2021-08-03] MEDS: IPRATROPIUM BROMIDE (0.02%) 0.5MG/2.5ML NEB HHN SCH ×2 (00:52→09:00)
[2021-08-03 04:00] VITALS: BP 129/73
[2021-08-03 08:00] VITALS: BP 147/76
[2021-08-03] MEDS: LOSARTAN POTASSIUM 100 MG TABLET PO SCH (09:16)
[2021-08-03] MEDS: CLOPIDOGREL 75MG TABLET PO SCH (09:17)
[2021-08-03] MEDS: ASPIRIN 81MG EC TABLET PO SCH (09:17)
[2021-08-03] MEDS: HYDROCHLOROTHIAZIDE 12.5MG CAPSULE PO SCH (09:17)
[2021-08-03] MEDS: HEPARIN 5000 UNITS/ML VIAL SUBCUT SCH (09:18)
[2021-08-03 12:00] VITALS: BP 110/79
[2021-08-03] MEDS ORDERED: TERBUTALINE SULFATE 1MG/ML VIAL SUBCUT SCH (14:00)
[2021-08-03 16:00] VITALS: BP 102/50
[2021-08-03] MEDS ORDERED: IPRATROPIUM/ALBUTEROL 0.5-3(2.5)MG/3ML NEB HHN SCH (16:00)
[2021-08-03] MEDS: PREDNISONE 20MG TABLET PO SCH ×2 (18:05→18:13)
[2021-08-03 20:34] VITALS: BP 114/63
== END 2021-08-03 20:35 | DRG 917 ==
LOC: ER 18:41 → MICUSO 22:36 → EDBEDREQTM 22:43 → EDBEDREQ 22:43 → 6WST 07-16 23:41 → 5EST 07-22 14:15 → 6EST 07-30 15:34
PROVIDERS: ADMIT Internal Medicine; ATTEND Internal Medicine
PROC: 5A09357 Assistance with Respiratory Ventilation, Less than 24 Consecutive Hours, Continuous Positive Airway Pressure (ICD-10-PCS; principal; 2021-07-19)
PROC: 5A09357 Assistance with Respiratory Ventilation, Less than 24 Consecutive Hours, Continuous Positive Airway Pressure (ICD-10-PCS; 2021-07-21)
PROC: 5A09357 Assistance with Respiratory Ventilation, Less than 24 Consecutive Hours, Continuous Positive Airway Pressure (ICD-10-PCS; 2021-07-22)
PROC: 5A09357 Assistance with Respiratory Ventilation, Less than 24 Consecutive Hours, Continuous Positive Airway Pressure (ICD-10-PCS; 2021-07-23)
PROC: 5A09357 Assistance with Respiratory Ventilation, Less than 24 Consecutive Hours, Continuous Positive Airway Pressure (ICD-10-PCS; 2021-07-24)
DX: T40.5X1A Poisoning by cocaine, accidental (unintentional), initial encounter (principal); J96.21 Acute and chronic respiratory failure with hypoxia; J68.0 Bronchitis and pneumonitis due to chemicals, gases, fumes and vapors; E44.1 Mild protein-calorie malnutrition; M62.82 Rhabdomyolysis; N17.9 Acute kidney failure, unspecified; F14.10 Cocaine abuse, uncomplicated; I10 Essential (primary) hypertension; R79.89 Other specified abnormal findings of blood chemistry; Z20.822 Contact with and (suspected) exposure to COVID-19; E86.0 Dehydration; I25.10 Atherosclerotic heart disease of native coronary artery without angina pectoris; Z82.49 Family history of ischemic heart disease and other diseases of the circulatory system; Z86.73 Personal history of transient ischemic attack (TIA), and cerebral infarction without residual deficits; Z99.81 Dependence on supplemental oxygen; Y92.89 Other specified places as the place of occurrence of the external cause; Z68.22 Body mass index [BMI] 22.0-22.9, adult; Z79.899 Other long term (current) drug therapy; Z79.02 Long term (current) use of antithrombotics/antiplatelets; Z71.51 Drug abuse counseling and surveillance of drug abuser; Z72.0 Tobacco use; R77.8 Other specified abnormalities of plasma proteins; D72.829 Elevated white blood cell count, unspecified
CPT/HCPCS: 36415; 71045; 80048; 80053; 80061; 80305; 80320; 81003; 82550; 82553; 82962; 83880; 84443; 84484; 85025; 86705; 86709; 86803; 87340; 87426; 93005; 93970; 94640; 94660; 97162; 97530; 99291; C1893; J1644; J2920; J2930; J3105; J7030; J7512; G0480